=== PATIENT | female | born 1945 | race Caucasian/White ===

== ENCOUNTER → 2024-04-20 09:55 | Outpatient (REF) | payer MEDICARE, SELFPAY ==
[2024-04-20 10:53] LABS: % Basophils 0.8 % (0-2); % Eosinophils 9.3 % (0-6); % Immature Granulocytes 0.2 % (0-0.5); % Lymphocytes 26.5 % (20.5-51.1); % Monocytes 7.4 % (1.7-9.3); % Neutrophils 55.8 % (42.2-75.2); Absolute Basophils 0.1 10^3/uL (0-0.2); Absolute Eosinophils 0.8 10^3/uL (0-0.7); Absolute Lymphocytes 2.2 10^3/uL (1.2-3.4); Absolute Monocytes 0.6 10^3/uL (0.1-0.6); Absolute Neutrophils 4.7 10^3/uL (1.4-6.5); Hematocrit 35.6 % (37.0-47.0); Hemoglobin 11.6 g/dL (12.0-16.0); Mean Corp Hgb Conc. 32.6 g/dL (33.0-37.0); Mean Corpuscular Hgb 30.7 pg (27.0-31.0); Mean Corpuscular Volume 94.2 fL (81.0-99.0); Mean Platelet Volume 10.3 fL (7.4-10.4); Nucleated Red Blood Cells % 0 %; Platelet Count 256 10^3/uL (130-400); Red Blood Cell Count 3.78 10^6/uL (4.20-5.40); Red Cell Dist. Width 13.2 % (11.5-14.5); White Blood Cell Count 8.5 10^3/uL (4.8-10.8)
[2024-04-20 12:11] LABS: ALT (SGPT) 18 U/L (0-35); AST (SGOT) 27 U/L (14-36); Albumin 3.9 g/dl (3.5-5.0); Alkaline Phosphatase 128 U/L (38-126); Blood Urea Nitrogen 14 mg/dl (7-17); Calcium 9.3 mg/dl (8.4-10.2); Carbon Dioxide 27 mmol/L (22-30); Chloride 104 mmol/L (98-107); Glucose 117 mg/dl (70-99); HDL Cholesterol 53 mg/dl; LDL Cholesterol, Calculated 108 mg/dl; Potassium 4.3 mmol/L (3.5-5.1); Sodium 139 mmol/L (135-145); Total Bilirubin 0.6 mg/dl (0.2-1.3); Total Cholesterol 178 mg/dl (50-199); Total Protein 6.5 g/dl (6.3-8.2); Triglyceride 85 mg/dl (10-149); Very Low Density Lipoprotein 17 mg/dl (0-30); eGFR > 60.00
[2024-04-20 12:24] LABS: Vitamin D, 25-OH*** 29.9 ng/mL (30-80)
[2024-04-20 12:37] LABS: TSH Reflex To Free T4 2.21 uIU/ml (0.47-4.68)
[2024-04-20 13:13] LABS: Folate > 20.0 ng/ml (2.76-20); Vitamin B12 > 1000 pg/ml (239-931)
== END ==
LOC: OLABLV 09:55
PROVIDERS: ATTENDING PHYSICIAN Nurse Practitioner Adult Health
DX: Z00.00 Encounter for general adult medical examination without abnormal findings (principal); Z79.899 Other long term (current) drug therapy; E55.9 Vitamin D deficiency, unspecified; F03.B0 Unspecified dementia, moderate, without behavioral disturbance, psychotic disturbance, mood disturbance, and anxiety; E03.9 Hypothyroidism, unspecified; E78.00 Pure hypercholesterolemia, unspecified; I10 Essential (primary) hypertension
CPT/HCPCS: 36415; 80053; 80061; 82306; 82607; 82746; 84443; 85025

== ENCOUNTER → 2024-07-13 10:34 | Outpatient (REF) | payer MEDICARE, OTHER, SELFPAY ==
[2024-07-13 12:03] LABS: Blood Urea Nitrogen 16 mg/dl (7-17); Calcium 9.5 mg/dl (8.4-10.2); Carbon Dioxide 26 mmol/L (22-30); Chloride 103 mmol/L (98-107); Glucose 119 mg/dl (70-99); Potassium 4.4 mmol/L (3.5-5.1); Sodium 135 mmol/L (135-145); eGFR > 60.00
== END ==
LOC: OLABLV 10:34
PROVIDERS: ATTENDING PHYSICIAN Registered Nurse
DX: F33.1 Major depressive disorder, recurrent, moderate (principal)
CPT/HCPCS: 36415; 80048

== ENCOUNTER → 2024-07-15 11:19 | Outpatient (REF) | payer MEDICARE, OTHER, SELFPAY ==
[2024-07-15 12:09] LABS: Blood Urea Nitrogen 15 mg/dl (7-17); Calcium 9.4 mg/dl (8.4-10.2); Carbon Dioxide 30 mmol/L (22-30); Chloride 102 mmol/L (98-107); Glucose 108 mg/dl (70-99); Potassium 4.4 mmol/L (3.5-5.1); Sodium 141 mmol/L (135-145); eGFR > 60.00
== END ==
LOC: OLABLV 11:19
PROVIDERS: ATTENDING PHYSICIAN Nurse Practitioner Adult Health
DX: I10 Essential (primary) hypertension (principal); E78.49 Other hyperlipidemia
CPT/HCPCS: 36415; 80048

== ENCOUNTER → 2024-09-28 13:11 | Outpatient (REF) | payer MEDICARE, OTHER, SELFPAY ==
[2024-09-28 14:50] LABS: % Basophils 0.8 % (0-2); % Eosinophils 8.2 % (0-6); % Immature Granulocytes 0.1 % (0-0.5); % Lymphocytes 27.8 % (20.5-51.1); % Monocytes 7.9 % (1.7-9.3); % Neutrophils 55.2 % (42.2-75.2); Absolute Basophils 0.1 10^3/uL (0-0.2); Absolute Eosinophils 0.6 10^3/uL (0-0.7); Absolute Monocytes 0.6 10^3/uL (0.1-0.6); Hematocrit 34.6 % (37.0-47.0); Hemoglobin 11.6 g/dL (12.0-16.0); Mean Corp Hgb Conc. 33.5 g/dL (33.0-37.0); Mean Corpuscular Hgb 30.9 pg (27.0-31.0); Mean Platelet Volume 10.1 fL (7.4-10.4); Nucleated Red Blood Cells % 0 %; Platelet Count 286 10^3/uL (130-400); Red Blood Cell Count 3.76 10^6/uL (4.20-5.40); Red Cell Dist. Width 13.3 % (11.5-14.5); White Blood Cell Count 7.3 10^3/uL (4.8-10.8)
[2024-09-28 15:24] LABS: ALT (SGPT) 18 U/L (0-35); AST (SGOT) 26 U/L (14-36); Alkaline Phosphatase 135 U/L (38-126); Blood Urea Nitrogen 12 mg/dl (7-17); Calcium 9.3 mg/dl (8.4-10.2); Carbon Dioxide 28 mmol/L (22-30); Chloride 102 mmol/L (98-107); Glucose 108 mg/dl (70-99); HDL Cholesterol 48 mg/dl; LDL Cholesterol, Calculated 102 mg/dl; Potassium 4.4 mmol/L (3.5-5.1); Sodium 140 mmol/L (135-145); Total Bilirubin 0.4 mg/dl (0.2-1.3); Total Cholesterol 170 mg/dl (50-199); Total Protein 6.3 g/dl (6.3-8.2); Triglyceride 100 mg/dl (10-149); Very Low Density Lipoprotein 20 mg/dl (0-30); eGFR > 60.00
[2024-09-28 15:52] LABS: TSH Reflex To Free T4 3.09 uIU/ml (0.47-4.68)
[2024-09-28 16:11] LABS: Vitamin B12 1000 pg/ml (239-931)
== END ==
LOC: OLABLV 13:11
PROVIDERS: ATTENDING PHYSICIAN Registered Nurse
DX: F03.90 Unspecified dementia, unspecified severity, without behavioral disturbance, psychotic disturbance, mood disturbance, and anxiety (principal); I10 Essential (primary) hypertension; E03.9 Hypothyroidism, unspecified; E78.00 Pure hypercholesterolemia, unspecified; E55.9 Vitamin D deficiency, unspecified; D64.9 Anemia, unspecified; E53.8 Deficiency of other specified B group vitamins
CPT/HCPCS: 36415; 80053; 80061; 82607; 84443; 85025

== ENCOUNTER 2025-01-02 07:12 | Inpatient (IN) | payer MEDICARE, SELFPAY ==
[2024-12-31 14:37] VITALS: BP 174/105
--- NOTE | 2024-12-31 14:40 | ED.GENMED ---
History of Present Illness
<Michelle Oneil, QUARRYMAN - Last Filed: 01/01/25 10:12>
General
Chief Complaint: Change in Mental Status
Source: ambulance crew and custodial records
Exam Limitations: dementia
Time Seen by Provider: 12/31/24 14:34
Nursing documentation reviewed up to this point in time: agreed with
History of Present Illness
History of Present Illness:
79 yo female sent in from [facility] for change in mental state. Reportedly , she is pleasantly demented but today she became suddenly aggressive, delirious, acute change for her.
Presents screaming out, flailing around, unable to communicate, will state her first name then states she's in ' [facility].'
Past History
<Michelle Oneil, QUARRYMAN - Last Filed: 01/01/25 10:12>
Past History
ED Past Medical History: GERD, HTN, Hypercholesterolemia, Hypothyroidism and Psychiatric (Dementia)
ED Past Surgical History: Cardiac (pacemaker)
Social History
Tobacco: Non-smoker
Alcohol: None
Living: custodial
Review of Systems
<Michelle Oneil, QUARRYMAN - Last Filed: 01/01/25 10:12>
Review of Systems
Allergies reviewed?: Yes
Unable to obtain full review of systems at this time due to: dementia
Other source history: custodial and ambulance crew
All Other Systems: ROS reviewed and negative except as documented in HPI and ROS
Constitutional: Denies fever
Respiratory: Denies trouble breathing
ABD/GI: Denies vomiting or diarrhea
Musculoskeletal: Denies edema
Skin: Reports no symptoms
Neurological: Reports other (change in mental state)
Phy Exam
<Michelle Oneil, QUARRYMAN - Last Filed: 01/01/25 10:12>
Physical Exam
Physical Exam:
GENERAL: No acute distress. A&Ox3.
CONSTITUTIONAL: Afebrile.
EYES: clear, conjunctivae normal
ENMT: dry mucus membranes
RESPIRATORY: Regular respirations, nonlabored, lungs clear.
CARDIOVASCULAR: Regular rate and rhythm, no murmurs, no rubs.
GI: Soft, nontender, normal BS
MUSCULOSKELETAL: Moves with ease. Well perfused. No edema
SKIN: Warm, dry, pink
PSYCH: Alternating agitated to quiet mood and affect. Well kept, cooperative at times, combative at times.
NEUROLOGIC: Awake, alert and oriented to first name only. Speech clear. No focal neurological deficits
Course
<Michelle Oneil QUARRYMAN - Last Filed: 01/01/25 10:12>
Orders/Labs/Results
Orders:
Orders
12/31/24 Breakfast
Regular
12/31/24 14:35
Straight cath- Treatment ONCE
12/31/24 14:44
CT Head W/o Iv Contrast Urgent
Comment:
Reason For Exam: change in mental state
12/31/24 14:48
Complete Blood Count/With Diff Urgent
Comprehensive Metabolic Panel Urgent
TSH Reflex To Free T4 Urgent
12/31/24 15:00
CR Chest - 2 Views Urgent
Comment:
Reason For Exam: change in mental state
12/31/24 15:06
COVID-19 Antigen Urgent
Source: Nasal Swab
Urinalysis Reflex To Culture Urgent
Date Specimen was Collected: 12/31/24
Time Specimen was Collected: 14:45
Urine Drug Abuse Screen Urgent
Date Specimen was Collected: 12/31/24
Time Specimen was Collected: 14:45
Influenza A+B Rapid Molecular Urgent
MARKO Source: Nasal Swab
Specimen Description:
12/31/24 17:47
Lorazepam [Ativan] 0.5 mg IV NOW STA
12/31/24 17:49
Lorazepam [Ativan] 2 mg .ROUTE .STK-MED ONE
12/31/24 18:10
Telemedicine Psychiatry Conslt Urgent
Service Line: Psychiatric
Nursing Station
Ordering Physician: Michelle Oneil
Referring Physician
Cart Name: Dayron
Clinical Comments: aggressive, combative behavior
Psych Consult Reason: Change in Mental Status
Psychiatry Consult Location: ED
Patient Needs to be Seen Emergently: Yes
Patient Admitted for NonPsychiatric Reasons: No
Patient in Restraints: Yes
Patient Requires a Personal Fitness Trainer: Yes
Patient's Legal Status is Involuntary: Yes
Patient Requires a Guardian: No
12/31/24 18:21
Crisis Consult Urgent
Reason for Consult: agitation and violence
12/31/24 18:30
Restraints - Violent As Directed
Restraint Type-: Soft Limb-L&R Wrist/4rail
Apply From (date): 12/31/24
Apply from (time): 18:30
Remove (date): 12/31/24
Remove (time): 22:32
12/31/24 18:32
1:1 Observation - Suicide/ Violent Behavior As Directed
12/31/24 19:30
Add On- LAB Urgent
Tests Added?: urine drug screen
12/31/24 20:14
Admit/Transfer Patient As Directed
Co-Sign Provider:
Level of Care: Observation services
Assign to:: Medical/Surgical
Physician / Group: Jack
Diagnosis: Acute Delirium on Chronic Dementia
PRN Pain Medication Management As Directed
May give lesser potent ordered pain med per pt: Yes
preference::
Protocol:: Medication orders for pain may be administered in a
manner that supports deferring to patient preference
when the pt is:
- Requesting an ordered lesser potent pain medication.
Least to most potent pain medications are defined
as: acetaminophen < NSAID < tramadol < opioids
(morphine, oxycodone, hydromorphone).
- Requesting a lesser dose of the same medication IF
ORDERED.
- Requesting a less intrusive route of administration
if both routes are prescribed by the provider (PO <
IV).
12/31/24 20:15
Code Status As Directed
Resuscitation Status: Full Code
12/31/24 20:24
EKG [Electrocardiogram (*1)] Urgent
Reason for Study: QTc Monitoring
12/31/24 22:18
Haloperidol Lactate [Haldol] 1 mg IV Q4HPRN PRN
12/31/24 22:50
Acetaminophen [Tylenol] 650 mg PO Q4HPRN PRN
12/31/24 22:50
Activity As Directed
Activity Level: Ambulate
With Assistance
I/O [Intake/ Output] As Directed
Frequency: Per unit guidelines
Neurological Checks As Directed
Frequency: q4h
Pneumatic Compression Sleeves As Directed
Type: Knee high
Vital Signs As Directed
Frequency: Per unit guidelines
Oxygen Therapy [O2 Therapy] [RESP] Routine
Titrate/Wean O2 to maintain O2 sat greater than (%): 94
Ot Eval And Treat Routine
PT Consult [Pt Eval And Treat] Routine
Activity Level: Ambulate
With Assistance
Speech Therapy Eval & Treat Routine
DX Deep Vein Thrombosis Video Routine
12/31/24 23:00
Citalopram [Celexa] 20 mg PO HS
01/01/25 06:00
MRI Brain [MR Brain Without Contrast] IN AM
Comment:
Reason For Exam: Altered Mental Status
Recent pill cam endoscopy?: No
Levothyroxine [Synthroid] 50 mcg PO DAILY@0600
01/01/25 06:32
Basic Metabolic Panel IN AM
Complete Blood Count/No Diff IN AM
01/01/25 08:00
Acetaminophen [Tylenol] 650 mg PO DAILY
Aspirin Chewable [Low Strength Aspirin] 81 mg PO DAILY
01/01/25 18:00
Pravastatin Sodium [Pravachol] 40 mg PO QPM
Abnormal Lab Results
12/31/24
14:48
Eosinophils % 8.7 H %
(0-6)
Creatinine 0.5 L mg/dL
(0.6-1.0)
Glucose 130 H mg/dl
(70-99)
Alkaline Phosphatase 172 H U/L
(38-126)
12/31/24 14:48
12/31/24 14:48
Vital Signs
Initial and Last Documented VS:
Initial Vital Signs
Pulse Resp BP Pulse Ox
79 16 174/105 98
12/31/24 14:37 12/31/24 14:37 12/31/24 14:37 12/31/24 14:37
Last Documented Vital Signs
Temp Pulse Resp BP Pulse Ox
97.8 F 60 16 131/61 96
01/01/25 06:40 01/01/25 06:40 01/01/25 06:40 01/01/25 06:40 01/01/25 06:40
Chazlt;Perry Ames, DO - Last Filed: 12/31/24 17:24>
Orders/Labs/Results
Orders:
Orders
12/31/24 Breakfast
Regular
12/31/24 14:35
Straight cath- Treatment ONCE
12/31/24 14:44
CT Head W/o Iv Contrast Urgent
Comment:
Reason For Exam: change in mental state
12/31/24 14:48
Complete Blood Count/With Diff Urgent
Comprehensive Metabolic Panel Urgent
TSH Reflex To Free T4 Urgent
12/31/24 15:00
CR Chest - 2 Views Urgent
Comment:
Reason For Exam: change in mental state
12/31/24 15:06
COVID-19 Antigen Urgent
Source: Nasal Swab
Urinalysis Reflex To Culture Urgent
Date Specimen was Collected: 12/31/24
Time Specimen was Collected: 14:45
Urine Drug Abuse Screen Urgent
Date Specimen was Collected: 12/31/24
Time Specimen was Collected: 14:45
Influenza A+B Rapid Molecular Urgent
MARKO Source: Nasal Swab
Specimen Description:
12/31/24 17:47
Lorazepam [Ativan] 0.5 mg IV NOW STA
12/31/24 17:49
Lorazepam [Ativan] 2 mg .ROUTE .STK-MED ONE
12/31/24 18:10
Telemedicine Psychiatry Conslt Urgent
Service Line: Psychiatric
Nursing Station
Ordering Physician: Michelle Oneil
Referring Physician
Cart Name: Dayron
Clinical Comments: aggressive, combative behavior
Psych Consult Reason: Change in Mental Status
Psychiatry Consult Location: ED
Patient Needs to be Seen Emergently: Yes
Patient Admitted for NonPsychiatric Reasons: No
Patient in Restraints: Yes
Patient Requires a Personal Fitness Trainer: Yes
Patient's Legal Status is Involuntary: Yes
Patient Requires a Guardian: No
12/31/24 18:21
Crisis Consult Urgent
Reason for Consult: agitation and violence
12/31/24 18:30
Restraints - Violent As Directed
Restraint Type-: Soft Limb-L&R Wrist/4rail
Apply From (date): 12/31/24
Apply from (time): 18:30
Remove (date): 12/31/24
Remove (time): 22:32
12/31/24 18:32
1:1 Observation - Suicide/ Violent Behavior As Directed
12/31/24 19:30
Add On- LAB Urgent
Tests Added?: urine drug screen
12/31/24 20:14
Admit/Transfer Patient As Directed
Co-Sign Provider:
Level of Care: Observation services
Assign to:: Medical/Surgical
Physician / Group: Jack
Diagnosis: Acute Delirium on Chronic Dementia
PRN Pain Medication Management As Directed
May give lesser potent ordered pain med per pt: Yes
preference::
Protocol:: Medication orders for pain may be administered in a
manner that supports deferring to patient preference
when the pt is:
- Requesting an ordered lesser potent pain medication.
Least to most potent pain medications are defined
as: acetaminophen < NSAID < tramadol < opioids
(morphine, oxycodone, hydromorphone).
- Requesting a lesser dose of the same medication IF
ORDERED.
- Requesting a less intrusive route of administration
if both routes are prescribed by the provider (PO <
IV).
12/31/24 20:15
Code Status As Directed
Resuscitation Status: Full Code
12/31/24 20:24
EKG [Electrocardiogram (*1)] Urgent
Reason for Study: QTc Monitoring
12/31/24 22:18
Haloperidol Lactate [Haldol] 1 mg IV Q4HPRN PRN
12/31/24 22:50
Acetaminophen [Tylenol] 650 mg PO Q4HPRN PRN
12/31/24 22:50
Activity As Directed
Activity Level: Ambulate
With Assistance
I/O [Intake/ Output] As Directed
Frequency: Per unit guidelines
Neurological Checks As Directed
Frequency: q4h
Pneumatic Compression Sleeves As Directed
Type: Knee high
Vital Signs As Directed
Frequency: Per unit guidelines
Oxygen Therapy [O2 Therapy] [RESP] Routine
Titrate/Wean O2 to maintain O2 sat greater than (%): 94
Ot Eval And Treat Routine
PT Consult [Pt Eval And Treat] Routine
Activity Level: Ambulate
With Assistance
Speech Therapy Eval & Treat Routine
DX Deep Vein Thrombosis Video Routine
12/31/24 23:00
Citalopram [Celexa] 20 mg PO HS
01/01/25 06:00
MRI Brain [MR Brain Without Contrast] IN AM
Comment:
Reason For Exam: Altered Mental Status
Recent pill cam endoscopy?: No
Levothyroxine [Synthroid] 50 mcg PO DAILY@0600
01/01/25 06:32
Basic Metabolic Panel IN AM
Complete Blood Count/No Diff IN AM
01/01/25 08:00
Acetaminophen [Tylenol] 650 mg PO DAILY
Aspirin Chewable [Low Strength Aspirin] 81 mg PO DAILY
01/01/25 18:00
Pravastatin Sodium [Pravachol] 40 mg PO QPM
Abnormal Lab Results
12/31/24
14:48
Eosinophils % 8.7 H %
(0-6)
Creatinine 0.5 L mg/dL
(0.6-1.0)
Glucose 130 H mg/dl
(70-99)
Alkaline Phosphatase 172 H U/L
(38-126)
12/31/24 14:48
12/31/24 14:48
Vital Signs
Initial and Last Documented VS:
Initial Vital Signs
Pulse Resp BP Pulse Ox
79 16 174/105 98
12/31/24 14:37 12/31/24 14:37 12/31/24 14:37 12/31/24 14:37
Last Documented Vital Signs
Temp Pulse Resp BP Pulse Ox
97.8 F 60 16 131/61 96
01/01/25 06:40 01/01/25 06:40 01/01/25 06:40 01/01/25 06:40 01/01/25 06:40
<Michelle Oneil QUARRYMAN - Last Filed: 01/01/25 10:12>
MDM/Problems Addressed
Differential Diagnosis Includes:
progressing dementia, metabolic encephalopathy, acute elicia/dilerium, CVA
MDM/Problems Addressed:
79 yo female w h/o GERD, HTN, HLD, Hypothyroid, sent in from [facility] for change in mental state. Reportedly , she is pleasantly demented but today she became suddenly aggressive, delirious, acute change for her.
Presents screaming out, flailing around, unable to communicate, will state her first name then states she's in ' [facility].'
Afebrile
No infectious symptoms
No new medications
No hypoxemia
No recent trauma/fall
After initial outburst, pt cooperative with blood draw, straight catheterization. Remains disoriented to her last name, place, year
3:30 p.m.
CBC: normal
CMP: Normal
Covid neg
Flu neg
TSH WNL
5:[address] NAD
CXR NAD
Pt has been calm, cooperative entire stay after initial event on arrival.
Stable for discharge
5:50 p.m.
Pt suddenly combative, confused attempting to climb out of bed, angry, Ativan 0.5 mg IV ordered.
6:10 p.m.
Pt has gotten out of bed and in bathroom naked, refusing to come out.
Placed back in bed, soft wrist restraints ordered for pt safety as she tries to pull out her IV. Pt is difficult to get to stay in bed even with 3 staff members present. One-one monitor person placed in room
Tele Psych order in. Pt may need [facility]
Namita YANEZ from [place] called and states pt is never agitated and this is totally out of ordinary for pt.
7:[address] Aguilar consulted. She recommends medical admission for Neuro eval and possibly MRI as pt is having expressive aphasia as well as episodes of delirium. She does not think this is a psychiatric issue. '
Requests no further Ativan as this can exacerbate delirium
Also recommends UDS which is pending
Attempt x 3 to call NH to see if expressive aphasia is new but no answer.
Medications reviewed and nothing to explain change in behavior
Hospitalist notified of admission.
<Michelle Oneil, QUARRYMAN - Last Filed: 01/01/25 10:12>
*Critical Care Note
Total Time (30-74mins, 75-104mins- exclusive of procedures): Not Applicable
ED Attending Note
<Michelle Oneil QUARRYMAN - Last Filed: 01/01/25 10:12>
-
Portions of this chart may have been created with voice recognition software.� Occasional wrong word or��sound alike� substitutions may have occurred due to the inherent limitations of voice recognition software.
<Perry Ames DO - Last Filed: 12/31/24 17:24>
ED Attending Note
Patient seen and examined by attending physician: Yes
I performed the substantive portion of visit, reviewed & personally made and approve the management plan that is documented in note by myself or MATT.: Yes
ED Attending Note:
History of presenting symptoms reviewed with QUARRYMAN, patient has been calm here, workup unremarkable
Discharge Plan
Departure
Patient Disposition: Admit
Date of Disposition: 12/31/24
Time of Disposition: 19:26
Admit to: Med/Surg
Presentation/result/management discussed w/ accepting MD/DO: Hospitalist
Condition: Fair
Covid-19: Negative COVID-19
Discharge Problem:
Episode of behavior change, Altered mental state
Interventions
Interventions:
*Risk Screen - Suicide Last Done: 12/31/24 14:37
*General Assessment Last Done: 12/31/24 16:59
*Neglect/Abuse Screening Last Done: 12/31/24 14:37
*ED COVID-19 Vaccine History Last Done: 12/31/24 15:04
ED- Neurological Assessment Last Done: 12/31/24 15:04
ED Swallowing Screen Last Done: 12/31/24 15:04
[2024-12-31 14:55] LABS: % Basophils 0.7 % (0-2); % Eosinophils 8.7 % (0-6); % Immature Granulocytes 0.3 % (0-0.5); % Lymphocytes 33.7 % (20.5-51.1); % Monocytes 7.2 % (1.7-9.3); % Neutrophils 49.4 % (42.2-75.2); Absolute Basophils 0.1 10^3/uL (0-0.2); Absolute Eosinophils 0.6 10^3/uL (0-0.7); Absolute Lymphocytes 2.4 10^3/uL (1.2-3.4); Absolute Monocytes 0.5 10^3/uL (0.1-0.6); Absolute Neutrophils 3.6 10^3/uL (1.4-6.5); Hematocrit 39.1 % (37.0-47.0); Hemoglobin 13.1 g/dL (12.0-16.0); Mean Corp Hgb Conc. 33.5 g/dL (33.0-37.0); Mean Corpuscular Volume 92.4 fL (81.0-99.0); Mean Platelet Volume 9.8 fL (7.4-10.4); Nucleated Red Blood Cells % 0 %; Platelet Count 251 10^3/uL (130-400); Red Blood Cell Count 4.23 10^6/uL (4.20-5.40); Red Cell Dist. Width 13.3 % (11.5-14.5); White Blood Cell Count 7.2 10^3/uL (4.8-10.8)
[2024-12-31 15:11] LABS: ALT (SGPT) 22 U/L (0-35); AST (SGOT) 36 U/L (14-36); Albumin 4.3 g/dl (3.5-5.0); Alkaline Phosphatase 172 U/L (38-126); Blood Urea Nitrogen 9 mg/dl (7-17); Calcium 9.8 mg/dl (8.4-10.2); Carbon Dioxide 28 mmol/L (22-30); Chloride 103 mmol/L (98-107); Glucose 130 mg/dl (70-99); Potassium 4.1 mmol/L (3.5-5.1); Sodium 138 mmol/L (135-145); Total Bilirubin 0.8 mg/dl (0.2-1.3); Total Protein 7.1 g/dl (6.3-8.2); eGFR > 60.00
[2024-12-31 15:36] LABS: COVID-19 Antigen Negative (Negative)
[2024-12-31 15:41] LABS: TSH Reflex To Free T4 2.14 uIU/ml (0.47-4.68)
[2024-12-31 15:43] LABS: Urine Albumin Negative (Neg - Trace); Urine Bilirubin Negative (Negative); Urine Character Clear (Clear); Urine Color Yellow; Urine Glucose Negative (Negative); Urine Ketone Negative (Negative); Urine Leukocyte Negative (Negative); Urine Nitrite Negative (Negative); Urine Occult Blood Negative (Negative); Urine Urobilinogen Negative (Neg - 1+)
[2024-12-31 16:55] VITALS: BP 144/85
[2024-12-31 17:00] VITALS: BP 156/91
[2024-12-31] MEDS: ATIVAN 0.5 MG IV (17:52)
[2024-12-31 20:18] LABS: Amphetamines Negative (Negative); Barbiturates Negative (Negative); Benzodiazepines Negative (Negative); Buprenorphine Negative (Negative); Cocaine Negative (Negative); Methamphetamines Negative (Negative)
[2024-12-31 20:19] LABS: Marijuana Negative (Negative); Methadone Negative (Negative); Opiates Negative (Negative); Phencyclidine Negative (Negative); Tricyclic Antidepressants Negative (Negative)
--- NOTE | 2024-12-31 20:37 | HPS.HSE ---
Family Physician
-
Family Physician: CUONG Jacobs
Chief Complaint
-
Agitation
History of Present Illness
Patient is a 79y F with PMH significant for senile dementia and hypothyroidism who presents to ED from local [place] for evaluation of behavioral change. Patient has baseline dementia but is typically pleasantly confused. Today she was aggressive
and combative and lashing out at staff physically. She was transported to the ED for evaluation. Patient received Ativan 0.5mg IV x 1 in the ED. She was evaluated by telepsych who appreciated some 'expressive aphasia' and advised that patient be
admitted to the hospital for medical evaluation.
At the time of my examination, patient is awake and interactive. She has wrist restraints in place due to continued aggressive behaviors. She answers simple questions seemingly appropriately - though not clear on accuracy of her answers.
She offers no complaints. She moves all extremities without apparent difficulty.
Objective evaluation in the ED has been unremarkable.
Medical History
Past Medical History
Past Medical History: Reports Other
Additional Past Medical History:
Senile Dementia
Hypothyroidism
GERD
Past Surgical History: Reports Other
Additional Past Surgical History:
Unknown
Social History
Unable to obtain full social history at this time due to: Dementia
Family History
Family History: Unable to Obtain
Allergies / Home Medications
Allergies reflects when Allergies were last updated in [facility].
Home Medications with original date entered in [facility]
Allergy/Medication List:
Allergies
Allergy/AdvReac Type Severity Reaction Status Date / Time
No Known Allergies Allergy Verified 12/18/21 12:56
Home Medications
Tinnitus 911 1 mg PO BID Supplement 12/18/21
acetaminophen 650 mg tablet,extended release (Tylenol Arthritis Pain) 650 mg PO DAILY Pain 12/18/21
citalopram 10 mg tablet 20 mg PO HS Mental Health/Anxiety 12/18/21
docusate sodium 100 mg capsule 100 mg PO DAILY Constipation 12/18/21
glucosamine-chondroitin 500 mg-400 mg tablet (Cosamin DS) 1 tab PO DAILY Supplement ##0 12/18/21
levothyroxine 50 mcg tablet 50 mcg PO DAILY Thyroid 12/18/21
melatonin 5 mg tablet 5 mg PO HS Sleep 12/18/21
meloxicam 7.5 mg tablet 15 mg PO HS Pain 12/18/21
pantoprazole 40 mg tablet,delayed release 40 mg PO BID Gastrointestinal issue 12/18/21
pravastatin 40 mg tablet 40 mg PO QPM High cholesterol 12/18/21
cyanocobalamin (vitamin B-12) 1,000 mcg tablet 1,000 mcg PO DAILY 12/31/24
Review of Systems
-
Unable to obtain full review of systems at this time due to: Dementia
Physical Exam
Vital Signs
Vital Signs
Temp Pulse Resp BP Pulse Ox
99.3 F 65 20 156/91 97
12/31/24 15:02 12/31/24 17:30 12/31/24 20:04 12/31/24 17:00 12/31/24 17:30
Physical Exam
General: Other (79y F awake and interactive. Not agitated / aggressive at present.)
HEENT: Moist mucous membranes and PERRLA
Respiratory: Clear; No Wheezes, Rales or Rhonchi
Cardiac: S1/S2 and Regular Rhythm; No Murmur
GI: Soft, Non Tender, Non Distended and Normal Bowel Sounds
Musculoskeletal: No Clubbing, No Cyanosis and No Edema
Neuro: Awake, Alert and Nonfocal/grossly intact; No Oriented
Laboratory Results
-
12/31/24 14:48
12/31/24 14:48
Laboratory Results
Total Bilirubin 0.8 mg/dl (0.2-1.3) 12/31/24 14:48
AST 36 U/L (14-36) 12/31/24 14:48
ALT 22 U/L (0-35) 12/31/24 14:48
Alkaline Phosphatase 172 U/L (38-126) H 12/31/24 14:48
Impression/Plan
-
A/P: Patient is a 79y F with PMH significant for dementia who presents to ED this evening for evaluation of new aggressive / combative behaviors.
Acute Delirium / Agitation
Chronic Dementia
- Observe overnight for further evaluation and treatment.
- No current evidence of other acute medical issue at this time.
- CT head unremarkable.
- Labs unremarkable.
- No evidence of pneumonia on CXR or infection on UA.
- Follow for clinical changes.
- Avoid sedating meds - Haldol for agitation per Psych recommendations.
- Check EKG now for QTc.
- Neurology and Psychiatry evaluations for additional recommendations.
- MRI in AM if able.
- Possible that this reflects progression of underlying dementia with new behavioral disturbance.
Hypothyroidism
- Stable. TSH normal. Continue current T4 replacement.
DVT Prophylaxis: SCDs
Code Status: Full
Case reviewed via phone with POA / court-appointed guardian Kassandra Tiwari ([phone]).
--- NOTE | 2024-12-31 23:00 | EDRN ---
Report received, patient is sleeping with 1:1 will continue to monitor
[2024-12-31] MEDS: CELEXA 20 MG PO (23:52)
--- NOTE | 2025-01-01 00:02 | EDRN ---
In to give patient meds, patient is friendly with me, takes meds without an issue, covered up with blankets and goes back to resting, continue 1:1
--- NOTE | 2025-01-01 02:30 | EDRN ---
Patient is sleeping at this time, 1:1 maintained
--- NOTE | 2025-01-01 04:00 | EDRN ---
Patient sleeping at this time 1:[address], will continue to monitor
[2025-01-01] MEDS: SYNTHROID PO ×2 (06:38→06:52)
[2025-01-01 06:39] VITALS: BP 131/61
[2025-01-01 06:40] VITALS: BP 131/61
--- NOTE | 2025-01-01 06:59 | EDRN ---
Patient rolled and changed, pulled up in bed and warm blankets provided
[2025-01-01 07:03] LABS: Hematocrit 36.6 % (37.0-47.0); Hemoglobin 12.6 g/dL (12.0-16.0); Mean Corp Hgb Conc. 34.4 g/dL (33.0-37.0); Mean Corpuscular Hgb 31.7 pg (27.0-31.0); Mean Platelet Volume 9.8 fL (7.4-10.4); Platelet Count 236 10^3/uL (130-400); Red Blood Cell Count 3.98 10^6/uL (4.20-5.40); Red Cell Dist. Width 13.3 % (11.5-14.5); White Blood Cell Count 8.1 10^3/uL (4.8-10.8)
[2025-01-01 07:16] LABS: Blood Urea Nitrogen 13 mg/dl (7-17); Calcium 9.5 mg/dl (8.4-10.2); Carbon Dioxide 33 mmol/L (22-30); Chloride 103 mmol/L (98-107); Glucose 106 mg/dl (70-99); Potassium 4.2 mmol/L (3.5-5.1); Sodium 138 mmol/L (135-145); eGFR > 60.00
--- NOTE | 2025-01-01 08:28 | CON.NEURO ---
Neuro Assessment/Plan
Assessment
Prior history of dementia with acute onset agitation
Most likely secondary to either Alzheimer's type dementia or progressive degenerative cognitive disorder of a similar nature
Plan
Supportive care
Continue citalopram
No evidence of benefit from initiation of memory stabilizing medication
Consultation
Order
Date of Consultation: 01/01/25
Requesting Provider: Hospitalist
Reason for Consult: Dementia
Subjective/Objective
Subjective Data
Date of Service: January 01, 2025
Objective Data
Vital Signs
Temp Pulse Resp BP Pulse Ox
36.6 C 60 16 131/61 96
01/01/25 06:40 01/01/25 06:40 01/01/25 06:40 01/01/25 06:40 01/01/25 06:40
Lab Results
01/01/25 06:32
01/01/25 06:32
Sodium 138 mmol/L (135-145) 01/01/25 06:32
Potassium 4.2 mmol/L (3.5-5.1) 01/01/25 06:32
BUN 13 mg/dl (7-17) 01/01/25 06:32
Glucose 106 mg/dl (70-99) H 01/01/25 06:32
Calcium 9.5 mg/dl (8.4-10.2) 01/01/25 06:32
Ur Buprenorphine Negative (Negative) 12/31/24 15:06
Patient Allergies
No Known Allergies Allergy (Verified 12/18/21 12:56)
Data Reviewed
-
CT Head: Report Reviewed
Labs: Report Reviewed
Reviewed with: Physician
Old Records: Summarized
Medications
-
Active Medications
Generic Name Dose Route Start Last Admin
Trade Name Freq PRN Reason Stop Dose Admin
Acetaminophen 650 mg 01/01/25 08:00
Acetaminophen 325 Mg Tablet PO 01/29/25 07:59
DAILY ZHANG
Acetaminophen 650 mg 12/31/24 22:50
Acetaminophen 325 Mg Tablet PO 01/28/25 22:49
Q4HPRN PRN
Mild Pain / Temp > 101
Aspirin 81 mg 01/01/25 08:00
Aspirin 81 Mg Chewable Tablet PO 01/29/25 07:59
DAILY ZHANG
Citalopram Hydrobromide 20 mg 12/31/24 23:00 12/31/24 23:52
Citalopram 20 Mg Tablet PO 01/28/25 22:59 20 mg
HS ZHANG Administration
Haloperidol Lactate 1 mg 12/31/24 22:18
Haloperidol 5 Mg/Ml 1 Ml Vial IV 01/28/25 22:17
Q4HPRN PRN
Agitation
Levothyroxine Sodium 50 mcg 01/01/25 06:00 01/01/25 06:52
Levothyroxine 50 Mcg Tablet PO 01/29/25 05:59 Not Given
DAILY@0600 ZHANG
Pravastatin Sodium 40 mg 01/01/25 18:00
Pravastatin 40 Mg Tablet PO 01/29/25 17:59
QPM ZHANG
Sodium Chloride 0 flush 12/31/24 23:00
Sodium Chloride 0.9% (Flush) Syringe IV 01/28/25 22:59
PER PROTOCOL ZHANG
Home Medications
�Medication �Instructions �Recorded
Tinnitus 911 1 mg PO BID Supplement 12/18/21
acetaminophen 650 mg 650 mg PO DAILY Pain 12/18/21
tablet,extended release (Tylenol
Arthritis Pain)
citalopram 10 mg tablet 20 mg PO HS Mental Health/Anxiety 12/18/21
docusate sodium 100 mg capsule 100 mg PO DAILY Constipation 12/18/21
glucosamine-chondroitin 500 mg-400 1 tab PO DAILY Supplement ##0 12/18/21
mg tablet (Cosamin DS)
levothyroxine 50 mcg tablet 50 mcg PO DAILY Thyroid 12/18/21
melatonin 5 mg tablet 5 mg PO HS Sleep 12/18/21
meloxicam 7.5 mg tablet 15 mg PO HS Pain 12/18/21
pantoprazole 40 mg tablet,delayed 40 mg PO BID Gastrointestinal issue 12/18/21
release
pravastatin 40 mg tablet 40 mg PO QPM High cholesterol 12/18/21
cyanocobalamin (vitamin B-12) 1,000 mcg PO DAILY 12/31/24
1,000 mcg tablet
Past History
Past History
ED Past Medical History: Arrthythmia (Bradycardia tachyarrhythmia), Cancer ([facility]), GERD, HTN, Hypercholesterolemia, Hypothyroidism, Psychiatric (Dementia) and Other (dementia, vitamin B12 deficiency, vitamin D deficiency)
ED Past Surgical History: Cardiac (pacemaker)
Social History
Tobacco: Non-smoker
Alcohol: None
Living: correction
Family History
Family History: Other (Reviewed and noncontributory)
[2025-01-01] MEDS: TYLENOL 650 MG PO (09:29)
[2025-01-01] MEDS: LOW STRENGTH ASPIRIN 81 MG PO (09:29)
--- NOTE | 2025-01-01 11:14 | W.PN.HOSP.TC ---
Today's Communication/Plan
-
Continue with medical treatment for agitation management
[facility] disturbances
Assessment / Plan
Assessment / Plan
A/P: Patient is a 79y F with PMH significant for dementia who presents to ED this evening for evaluation of new aggressive / combative behaviors.
Acute change in mental status with agitation
Chronic Dementia
- Remains confused and delusional
- No current evidence of other acute medical issue at this time. No obvious metabolic disturbances nor any suggestions of active infection
- CT head unremarkable.
- Labs unremarkable.
- No evidence of pneumonia on CXR or infection on UA.
- Avoid sedating meds - Haldol for agitation per Psych recommendations.
- Neurology and Psychiatry evaluations for additional recommendations.
- MRI in AM if able.
- Likely this reflects progression of underlying dementia with new behavioral disturbance.
Hypothyroidism
- Stable. TSH normal. Continue current T4 replacement.
DVT Prophylaxis: SCDs
Code Status: Full
POA / court-appointed guardian Kassandra Tiwari ([phone]).
Anticipated Discharge: Within 24 hours
Subjective/Interval History
-
Date of Service: January 01, 2025
Patient is now 1:1.
1:1 person says she is all confused and not allowing care .
She shourded herself in large blanket.
With persuasion i could get her to remove the blanket and talk face to face with me.
She is all confused -does not know where she is.
' People of the town is trying to get as people living in the facility' She couldnt tell me which facility.
' People around me accuse me of not taking care of myself'
She starts to talk about her parents all of a sudden.
When i asked if she has any kids ' i dont know if have any'
Nontoxic looking
No distress at rest
Objective Data
-
Labs:
Laboratory Results
01/01/25
06:32
WBC 8.1
Hgb 12.6
Hct 36.6 L
Plt Count 236
Sodium 138
Potassium 4.2
Chloride 103
Carbon Dioxide 33 H
BUN 13
Creatinine 0.6
Glucose 106 H
Calcium 9.5
Vital Signs:
Vital Signs
Temp Pulse Resp BP Pulse Ox
97.8 F 60 16 131/61 96
01/01/25 06:40 01/01/25 06:40 01/01/25 06:40 01/01/25 06:40 01/01/25 06:40
Review of Systems
-
Unable to obtain full review of systems at this time due to: Other (Due to cognitive impairment)
Physical Exam
-
General: Comfortable and Other (Didnt allow examination )
HEENT: Other (nontoxic looking)
Respiratory: Non Labored Respirations; Negative Accessory Resp Muscle Use
Neuro: Awake, Alert and Oriented (self only)
Psych: Calm and Confused
Data Reviewed
-
Labs: Labs Reviewed by me
--- NOTE | 2025-01-01 13:10 | W.PN.UPDATE ---
Update Note
Progress Note Update
Pt seen, reviewed Tele-psych eval. Pt is a 79 yo female brought from [facility], due to change in mental status/behavior, reportedly usually pleasantly demented at baseline, but became aggressive. Pt was given Ativan 0.5 mg IV in ED.
Pt noted to be awake and interactive in ED, answering simple questions, though not able to give accurate information. Head CT showed no acute abnormality. On approach, pt hiding behind blanket, not making eye contact, refusing to be interviewed,
stated she doesn't want anyone talking to her. No physical agitation, affect irritable.
PMH: Hypothyroidism, dementia
Psych hx: none noted other than dementia. Rx Celexa 10 mg QD
MSE: awake, holding blanket up, not making eye contact, refusing to be interviewed. No overt hallucinations/delusions. Unable to do full exam. Insight appears poor
Imp: Dementia with behavior disturbance; change of mental status due to progression of dementia vs possible delirium
Rec: agree with Haldol IV prn for agitation/aggression. Will follow
[2025-01-01 14:17] VITALS: BP 138/79
[2025-01-01] MEDS: HALDOL 1 MG IV (16:11)
--- NOTE | 2025-01-01 16:13 | PTCARENOTE ---
admitted from ED for acute change in MS. patient is agitated and combative on 1:1. unable to provide any history, not following simple commands. son on the contact list. this RN called son Jaspreet, and was informed that patient has a state assigned
guardian. some admission questions were answered by family.
patient became very restless, walked out of the room despite multiple attempts to redirect, unable to return back to her room. pushes this RN away and stating to get out of her. mickie puente called. patient was given IM Haldol. placed back in bed.
unable to assess sacral/buttocks for any skin issues, no visible open areas noted upon admission.
--- NOTE | 2025-01-01 17:50 | PTCARENOTE ---
received a call from Kassandra Tiwari patient appointed guardian, asking for updates. patient unable to hold a conversation at this time. restless and disoriented, 1:1 present at bedside
[2025-01-01] MEDS: CELEXA PO (22:43)
[2025-01-01 23:29] VITALS: BP 112/72
[2025-01-02] MEDS: SYNTHROID PO (05:19)
[2025-01-02] MEDS: TYLENOL PO (07:45)
[2025-01-02] MEDS: LOW STRENGTH ASPIRIN PO (07:45)
[2025-01-02 08:41] VITALS: BP 141/75
--- NOTE | 2025-01-02 08:53 | W.PN.HOSP.TC ---
Addendum entered and electronically signed by Rosita Leary MD 01/02/25 20:37:
I saw and evaluated the patient independently. I reviewed the resident�s note and agree with findings and plan as documented by Dr. Hernandez.
GENERAL: well developed, well nourished, female in no apparent distress
HEENT: NC/AT--no O2 requirements
HEART: regular rate and rhythm, +S1, +S2
LUNGS : clear to auscultation bilaterally
ABDOM: soft, nontender, nondistended, + bowel sounds
EXT: no cyanosis, clubbing, or edema
NEUROLOGIC: apparent dementia
Acute change in mental status with agitation--w/u neg for medical causes--likely progressive dementia with new behavioral changes-confused--prn haldol
Hypothyroidism--TSH normal. Continue current T4 replacement.
DVT Proph-- SCDs
Code Status--Full
POA / court-appointed guardian Kassandra Tiwari ([phone])--Dr. Hernandez updated 01/02/25
Original Note:
Today's Communication/Plan
-
Patient appears to be at her current baseline and is reached maximal benefit from this hospital admission. Plan is to return to [facility] vs SNF. Pending assessment. Will move forward with discharge planning following assessments.
Assessment / Plan
Assessment / Plan
HPI: Patient is a 79-year-old female who presented to [facility] from [facility] due to change in mental state. Her normal baseline at [facility] is 'pleasantly demented' but unfortunately the day of her presentation she suddenly
became aggressive, delirious, which was an acute change for her. The patient presented screaming out, flailing around, and was unable to communicate. She then would state her name and would remark that she was in '[facility] The
patient had no infectious symptoms, no new medication changes, no hypoxemia, and no evidence of recent trauma or fall. The patient was subsequently admitted to [facility] for altered mental status.
-Acute change in mental status with agitation: Monitoring
Patient suffers from chronic Dementia
Remains confused
No current evidence of other acute medical issue at this time. No obvious metabolic disturbances nor any suggestions of active infection
CT head unremarkable.
Labs unremarkable.
No evidence of pneumonia on CXR or infection on UA.
Psychiatry recommended avoiding sedating medications. Haldol for agitation.
Still awaiting MRI
Unfortunately, this reflects a progression of underlying dementia with new behavioral disturbance
- Hypothyroidism: Stable
TSH normal. Continue current T4 replacement.
DVT Prophylaxis: SCDs
Code Status: Full
POA / court-appointed guardian Kassandra Tiwari ([phone]).
Anticipated Discharge: 24 - 48 hours
Subjective/Interval History
-
Met with patient at the bedside. She is seen resting in the bed. She has no complaints but does not feel like eating. She did not eat her breakfast or her lunch.
Objective Data
-
Labs:
Labs
01/02/25 08:33
01/02/25 08:33
Vital Signs:
Vital Signs
Temp Pulse Resp BP Pulse Ox
98.5 F 69 16 141/75 96
01/02/25 08:41 01/02/25 08:41 01/02/25 08:41 01/02/25 08:41 01/02/25 08:41
I&O
01/01/25 01/02/25 01/03/25
06:59 06:59 06:59
Intake Total 360 / 360
Balance 360 / 360
Review of Systems
-
History Source: Patient
Constitutional: Reports No Symptoms
EENT: Reports No Symptoms Reported
Respiratory: Reports No Symptoms
Cardiac: Reports No Symptoms
Abdomen/GI: Reports No Symptoms
Breast: Reports No Symptoms
Genitourinary: Reports No Symptoms
Musculoskeletal: Reports No Symptoms
Skin: Reports No Symptoms
Neuro: Reports No Symptoms
Endocrine: Reports No Symptoms
Hematologic / Lymphatic: Reports No Symptoms
Physical Exam
-
General: Well Developed, Well Nourished and No Apparent Distress
HEENT: Normocephalic, Atraumatic and Moist Mucous Membranes
Respiratory: Clear to Auscultation
Cardiac: Regular Rhythm and S1/S2
Breast: Deferred by me
GI: Soft, Nontender, Nondistended and Normal Bowel Sounds
Musculoskeletal: No Clubbing, No Cyanosis and No Edema
Skin: Warm, Dry and Rash
Neuro: Awake and Alert
Psych: Calm
[2025-01-02 08:54] LABS: Hematocrit 37.2 % (37.0-47.0); Hemoglobin 12.5 g/dL (12.0-16.0); Mean Corp Hgb Conc. 33.6 g/dL (33.0-37.0); Mean Corpuscular Hgb 31.3 pg (27.0-31.0); Mean Platelet Volume 9.8 fL (7.4-10.4); Platelet Count 237 10^3/uL (130-400); Red Cell Dist. Width 13.3 % (11.5-14.5); White Blood Cell Count 9.9 10^3/uL (4.8-10.8)
[2025-01-02 09:19] LABS: ALT (SGPT) 24 U/L (0-35); AST (SGOT) 37 U/L (14-36); Albumin 4.2 g/dl (3.5-5.0); Alkaline Phosphatase 149 U/L (38-126); Blood Urea Nitrogen 16 mg/dl (7-17); Calcium 9.3 mg/dl (8.4-10.2); Carbon Dioxide 29 mmol/L (22-30); Chloride 102 mmol/L (98-107); Glucose 112 mg/dl (70-99); Potassium 3.9 mmol/L (3.5-5.1); Sodium 138 mmol/L (135-145); Total Protein 6.5 g/dl (6.3-8.2); eGFR > 60.00
--- NOTE | 2025-01-02 09:41 | PTOTSP ---
Patient appears to be at her functional baseline. Independent with bed mobility and transfers, supervision and nearing independence with ambulation. No skilled PT needs, will sign off.
--- NOTE | 2025-01-02 09:41 | PTOTSP ---
pt currently requires supervision to minimal assistance to complete simple ADLs, functional transfers, ambulation. pt appears to be close to functional baseline, no acute OT needs identified at this time. will sign off.
[2025-01-02] MEDS: LOW STRENGTH ASPIRIN 81 MG PO (11:09)
[2025-01-02] MEDS: TYLENOL 650 MG PO (11:10)
--- NOTE | 2025-01-02 11:36 | PTOTSP ---
ST Acute Care Evaluation
Limited exam. Pt refused all solids offered to her. Pt was observed to demonstrated oral, pharyngeal, and esophageal phases that were WFL for consumption of thin liquids via straw and whole PO meds with thin liquids. Further assessment needed.
Recommendations:
- Continue with regular solids, thin liquids, meds as tolerated with close supervision to ensure tolerance.
- General aspiration and reflux precautions.
- MANAGER BIOSTATISTICS to f/u re: further assessment of consumption of solid consistencies to determine safest and least restrictive diet consistencies and to determine if pt would benefit from an instrumental swallow study.
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
--- NOTE | 2025-01-02 16:37 | CM ---
Patient seen at bedside with physician. CM called to guardian Kassandra Karie at [phone] and update provided by physician. Guardian emailed paperwork to CM and patient son is in touch with guardian but is estranged. Patient now INP and is now
having aggressive behaviors. Patient is from [facility] and CM called to [facility] and left VM as well as to Liaison with [facility] and tt sent to [facility] asking about level of care needed. Patient is at baseline per PT/OT assessment. CM will continue to
follow for discharge planning needs.
Plan; return to [facility] vs SNF; pending assessment.
--- NOTE | 2025-01-02 17:06 | W.PN.UPDATE ---
Update Note
Progress Note Update
patient seen chart reviewed. patient has had two episodes of agitation the last one late this afternoon. nursing tells me they used the art of distraction to calm her down and when i saw her she was clearly very cognitively impaired but sitting at
the edge of her bed folding and refolding a blanket. she has not used the haldol prn. if she needs it this evening would order it as a standing order tomorrow around 4 pm. perhaps what we are seeing is sundowning.
[2025-01-02] MEDS: CELEXA 20 MG PO (20:10)
[2025-01-02 23:30] VITALS: BP 141/69
[2025-01-03] MEDS: SYNTHROID 50 MCG PO (06:08)
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
[2025-01-03] MEDS: HALDOL 1 MG IM ×2 (06:42→17:24)
--- NOTE | 2025-01-03 07:42 | W.PN.HOSP.TC ---
Addendum entered and electronically signed by Rosita Leary MD 01/03/25 19:43:
I saw and evaluated the patient independently. I reviewed the resident�s note and agree with findings and plan as documented by Dr. Hernandez.
GENERAL: well developed, well nourished, female in no apparent distress
HEENT: NC/AT--no O2 requirements
HEART: regular rate and rhythm, +S1, +S2
LUNGS : clear to auscultation bilaterally
ABDOM: soft, nontender, nondistended, + bowel sounds
EXT: no cyanosis, clubbing, or edema
NEUROLOGIC: apparent dementia
Acute change in mental status with agitation--w/u neg for medical causes--likely progressive dementia with new behavioral changes-confused--prn haldol--has been agitated and not re-directable (with 3 code purples)--likely should go to [facility] for
medication adjustments--celexa has been decreased and standing PO haldol added
Hypothyroidism--TSH normal. Continue current T4 replacement.
DVT Proph-- SCDs
Code Status--Full
POA / court-appointed guardian Kassandra Tiwari ([phone])--Dr. Hernandez updated 01/02/25, I updated 01/03/25
Original Note:
Today's Communication/Plan
-
Patient had a breakthrough episode of agitation requiring administration of Haldol. Psych continues to follow her and will meet with her tomorrow to determine if any medication adjustments are indicated. Patient's [facility].
Assessment / Plan
Assessment / Plan
-Acute change in mental status with agitation: Monitoring
Patient suffers from chronic Dementia
Remains confused
No current evidence of other acute medical issue at this time. No obvious metabolic disturbances nor any suggestions of active infection
CT head unremarkable.
Labs unremarkable.
No evidence of pneumonia on CXR or infection on UA.
Psychiatry recommended avoiding sedating medications. Haldol for agitation.
Still awaiting MRI
Unfortunately, this reflects a progression of underlying dementia with new behavioral disturbance
Patient had a breakthrough episode of agitation requiring administration of Haldol. Psych continues to follow her and will meet with her tomorrow to determine if any medication adjustments are indicated.
- Hypothyroidism: Stable
TSH normal. Continue current T4 replacement.
DVT Prophylaxis: SCDs
Code Status: Full
POA / court-appointed guardian Kassandra Tiwari ([phone]).
Anticipated Discharge: 24 - 48 hours
Subjective/Interval History
-
Met with the patient at the bedside. She appears apprehensive and distrustful of others. She was successfully able to be redirected and I was able to conduct a physical exam on her today. She was agitated earlier in the day and she was given
Haldol in order to ensure patients safety.
Objective Data
-
Labs:
Patient did not allow lab draws today. Is medically stable and already in discharge planning.
Vital Signs:
Vital Signs
Temp Pulse Resp BP Pulse Ox
98.8 F 68 16 141/69 96
01/02/25 23:30 01/02/25 23:30 01/02/25 23:30 01/02/25 23:30 01/02/25 23:30
I&O
01/02/25 01/03/25 01/04/25
06:59 06:59 06:59
Intake Total 360 / 360 1080 / 1080
Balance 360 / 360 1080 / 1080
Review of Systems
-
History Source: Patient
Constitutional: Reports No Symptoms
EENT: Reports No Symptoms Reported
Respiratory: Reports No Symptoms
Cardiac: Reports No Symptoms
Abdomen/GI: Reports No Symptoms
Breast: Reports No Symptoms
Genitourinary: Reports No Symptoms
Musculoskeletal: Reports No Symptoms
Skin: Reports No Symptoms
Neuro: Reports No Symptoms
Endocrine: Reports No Symptoms
Hematologic / Lymphatic: Reports No Symptoms
Allergy / Immunology: Reports No Symptoms
Physical Exam
-
General: Well Developed, Well Nourished and No Apparent Distress
HEENT: Normocephalic, Atraumatic and Moist Mucous Membranes
Respiratory: Clear to Auscultation
Cardiac: Regular Rhythm and S1/S2
Breast: Deferred by me
GI: Soft, Nontender, Nondistended and Normal Bowel Sounds
Genito-urinary: Deferred by me
Musculoskeletal: No Clubbing, No Cyanosis and No Edema
Skin: Warm and Dry
Neuro: Awake, Alert, Oriented and AO x 3
Psych: Calm and Confused
[2025-01-03] MEDS: LOW STRENGTH ASPIRIN PO (07:45)
[2025-01-03] MEDS: TYLENOL PO (07:45)
--- NOTE | 2025-01-03 12:01 | W.PN.UPDATE ---
Update Note
Progress Note Update
patient seen chart reviewed. discussed w nursing and spoke with dr pean. the patient has had three code purples called . she becomes agitated and aggressive for no apparent reason. she is currently on a one to one because of this. she recieved
a prn of haldol this am and is now sleeping. have ordered haldol o.5 mg bid concentrate as a scheduled order. her agitation does seem to have responded to haldol. have cut back celexa to 10 mg as it could be agitating her. would consider whether
she needs it. when i spoke to her yesterday and the day before she did not seem depressed . her qtc is nl. celexa has a warning re qtc prolongation. with po haldol there should be no issue. psych will follow
--- NOTE | 2025-01-03 13:46 | CM ---
Addendum entered by Yasmine Valero 01/03/25 15:57:
Guardian requested referrals to [facility] psych. Patient guardian requested call from Psych tomorrow and Dr. Perla indicated she would update Dr. Hassan. CM will continue to follow for discharge planning needs.
Addendum entered by Yasmine Valero 01/03/25 15:44:
CM spoke with Guardian and she is requesting referral to geripsych. CM spoke with psych who agreed to have CM work with Guardian to make referrals to geripsych. Psych to follow for review per Psychiatry. CM will call back to Guardian after 4:30pm.
CM will continue to follow for discharge planning needs.
Plan; geripsych vs Psych
Original Note:
[facility] was stated she was unable to accept patient due to behaviors. Patient Guardian is being called by NANCY Duke awaiting updates.
[2025-01-03 15:15] VITALS: BP 128/62
--- NOTE | 2025-01-03 17:25 | PTCARENOTE ---
01/03- Patient is increasingly more agitated. She is able to get up and over her 4 siderails with 1:1 walking with her. Unable to verbally redirect or using de-escalation techniques. Patient made several attempts to walk into others rooms and out
the back exit door on 4W. Jez Robb called. PRN Haldol administered at this time. Continue to monitor.
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
--- NOTE | 2025-01-03 18:12 | PTCARENOTE ---
01/03- A Code Purple has been called again on this patient. This RN found patient on 4E attempting to walk into others rooms again, despite Haldol administration earlier. She is still agitated, confused and physically combative. Security again
attempted to de-escalate patient verbally several times. Security then took patient back to her room. Notified Physician. BL Wrist Soft Restraints applied as per new order. Neurovascular checks and restraint checks are within normal and safe
limits respectively. Continue to monitor.
[2025-01-03 23:25] VITALS: BP 164/73
[2025-01-03] MEDS: CELEXA 10 MG PO (23:57)
[2025-01-03] MEDS: HALDOL CONCENTRATE 0.5 MG PO (23:57)
[2025-01-04] MEDS: TYLENOL 650 MG PO (05:08)
[2025-01-04] MEDS: LOW STRENGTH ASPIRIN 81 MG PO (05:08)
[2025-01-04] MEDS: SYNTHROID 50 MCG PO (05:09)
--- NOTE | 2025-01-04 05:41 | PTCARENOTE ---
Pt was provided meds crushed in applesauce this am. Pt was uncooperative and suspisious. Nurse attempted to reorient pt and explain what the mediation were. Pt denied taking those medication. Nurse was able to administer >90% of medication during
early AM pass. The last 5% was spit out at staff. Pt remains in restraints with 1:1 at bedside. pt denied any needs or pain at this time. Neuro vasc check WDL. Range of motion of B/L UE competed.
[2025-01-04 07:00] VITALS: BP 137/72
--- NOTE | 2025-01-04 07:17 | W.PN.HOSP.TC ---
Addendum entered and electronically signed by Rosita Leary MD 01/04/25 17:16:
I saw and evaluated the patient independently. I reviewed the resident�s note and agree with findings and plan as documented by Dr. Hernandez.
GENERAL: well developed, well nourished, female in no apparent distress
HEENT: NC/AT--no O2 requirements
HEART: regular rate and rhythm, +S1, +S2
LUNGS : clear to auscultation bilaterally
ABDOM: soft, nontender, nondistended, + bowel sounds
EXT: no cyanosis, clubbing, or edema
NEUROLOGIC: apparent dementia
Acute change in mental status with agitation--w/u neg for medical causes--likely progressive dementia with new behavioral changes---prn haldol--has been agitated--likely should go to [facility] for medication adjustments, waiting for bed
acceptance--celexa has been decreased and standing PO haldol added
Hypothyroidism--TSH normal. Continue current T4 replacement.
DVT Proph-- SCDs
Code Status--Full
POA / court-appointed guardian Kassandra Tiwari ([phone])--Dr. Hernandez updated 01/02/25, I updated 01/03/25
Original Note:
Today's Communication/Plan
-
The patient has been started on 0.5 mg of Haldol twice daily for agitation. Patient is medically stable and appropriate for discharge at the present time. Discharge planning ongoing.
Assessment / Plan
Assessment / Plan
-Acute change in mental status with agitation: Monitoring
Patient suffers from chronic Dementia
Remains confused
No current evidence of other acute medical issue at this time. No obvious metabolic disturbances nor any suggestions of active infection
CT head unremarkable.
Labs unremarkable.
No evidence of pneumonia on CXR or infection on UA.
Psychiatry recommended avoiding sedating medications. Haldol for agitation.
Still awaiting MRI
Unfortunately, this reflects a progression of underlying dementia with new behavioral disturbance
Appreciate psychiatry consult. 0.5 mg Haldol p.o. twice daily added for agitation
- Hypothyroidism: Stable
TSH normal. Continue current T4 replacement.
DVT Prophylaxis: SCDs
Code Status: Full
POA / court-appointed guardian Kassandra Tiwari ([phone]).
Anticipated Discharge: Within 24 hours
Subjective/Interval History
-
Met with patient at the bedside. She was sleepy today and did not talk much this morning. Her status remains unchanged since yesterday.
Objective Data
-
Labs:
Laboratory Results
01/03/25 01/03/25 01/04/25
06:00 15:00 07:16
WBC Cancelled Pending
Hgb Cancelled Pending
Hct Cancelled Pending
Plt Count Cancelled Pending
Sodium Cancelled Pending
Potassium Cancelled Pending
Chloride Cancelled Pending
Carbon Dioxide Cancelled Pending
BUN Cancelled Pending
Creatinine Cancelled Pending
Glucose Cancelled Pending
Calcium Cancelled Pending
Total Bilirubin Cancelled Pending
AST Cancelled Pending
ALT Cancelled Pending
Alkaline Phosphatase Cancelled Pending
Vital Signs:
Vital Signs
Temp Pulse Resp BP Pulse Ox
98.7 F 67 17 164/73 97
01/03/25 23:25 01/03/25 23:25 01/03/25 23:25 01/03/25 23:25 01/03/25 23:25
I&O
01/03/25 01/04/25 01/05/25
06:59 06:59 06:59
Intake Total 1080 / 1080 10 / 10
Output Total 0 / 0
Balance 1080 / 1080 10 / 10
Review of Systems
-
Constitutional: Reports No Symptoms
Respiratory: Reports No Symptoms
Cardiac: Reports No Symptoms
Abdomen/GI: Reports No Symptoms
Breast: Reports No Symptoms
Genitourinary: Reports No Symptoms
Musculoskeletal: Reports No Symptoms
Skin: Reports No Symptoms
Neuro: Reports No Symptoms
Endocrine: Reports No Symptoms
Hematologic / Lymphatic: Reports No Symptoms
Allergy / Immunology: Reports No Symptoms
Physical Exam
-
General: Well Developed, Well Nourished and No Apparent Distress
HEENT: Normocephalic, Atraumatic and Moist Mucous Membranes
Respiratory: Clear to Auscultation
Cardiac: Regular Rhythm and S1/S2
Breast: Deferred by me
GI: Soft, Nontender, Nondistended and Normal Bowel Sounds
Rectal: Deferred by Provider
Genito-urinary: Deferred by me
Musculoskeletal: No Clubbing, No Cyanosis and No Edema
Skin: Warm and Dry
Psych: Calm
--- NOTE | 2025-01-04 07:43 | CM ---
Addendum entered by Yasmine Valero 01/04/25 14:45:
[facility] had a bed but are resisting accepting the Guardianship paperwork. Guardian aware and calling facility. CM working with psych to complete 201 and email form to guardianship. CM will continue to follow for discharge planning needs.
Original Note:
Referrals sent to [facility] at request of guardian. Awaiting response.
[2025-01-04 09:06] LABS: Hematocrit 35.7 % (37.0-47.0); Hemoglobin 11.8 g/dL (12.0-16.0); Mean Corp Hgb Conc. 33.1 g/dL (33.0-37.0); Mean Corpuscular Hgb 30.7 pg (27.0-31.0); Mean Platelet Volume 9.8 fL (7.4-10.4); Platelet Count 251 10^3/uL (130-400); Red Blood Cell Count 3.84 10^6/uL (4.20-5.40); Red Cell Dist. Width 13.3 % (11.5-14.5); White Blood Cell Count 8.9 10^3/uL (4.8-10.8)
[2025-01-04] MEDS: HALDOL CONCENTRATE 0.5 MG PO ×2 (09:28→21:00)
[2025-01-04 09:41] LABS: ALT (SGPT) 33 U/L (0-35); AST (SGOT) 45 U/L (14-36); Albumin 4.2 g/dl (3.5-5.0); Alkaline Phosphatase 141 U/L (38-126); Blood Urea Nitrogen 14 mg/dl (7-17); Calcium 9.2 mg/dl (8.4-10.2); Carbon Dioxide 26 mmol/L (22-30); Chloride 102 mmol/L (98-107); Glucose 108 mg/dl (70-99); Magnesium 2.4 mg/dl (1.6-2.3); Potassium 3.7 mmol/L (3.5-5.1); Sodium 137 mmol/L (135-145); Total Bilirubin 1.1 mg/dl (0.2-1.3); Total Protein 6.5 g/dl (6.3-8.2); eGFR > 60.00
--- NOTE | 2025-01-04 15:20 | W.PN.UPDATE ---
Update Note
Progress Note Update
Pt seen, reviewed with case coordinator. Pt resting in bed, in soft wrist restraints, has been sleeping/keeping eyes closed today, has not eaten. Pt uncooperative with treatment/testing. She is taking medication, was placed on Haldol 0.5 mg BID. Pt was
agitated yesterday, trying to enter rooms, cursing at staff, was given Haldol 1 mg x 2. Pt reportedly has a legal guardian, who is willing to sign consent for psych placement.
Imp: Unspecified psychosis
Dementia, with behavior disturbance
Rec: continue Haldol; Celexa tapered to 10 mg HS. Case mgt pursuing [facility]
Will follow
[2025-01-04 23:05] VITALS: BP 134/67
[2025-01-05] MEDS: CELEXA PO (02:44)
[2025-01-05] MEDS: SYNTHROID PO (06:36)
--- NOTE | 2025-01-05 07:25 | W.PN.HOSP.TC ---
Addendum entered and electronically signed by Rosita Leary MD 01/05/25 16:50:
I saw and evaluated the patient independently. I reviewed the resident�s note and agree with findings and plan as documented by Dr. Hernandez.
GENERAL: well developed, well nourished, female in no apparent distress
HEENT: NC/AT--no O2 requirements
HEART: regular rate and rhythm, +S1, +S2
LUNGS : clear to auscultation bilaterally
ABDOM: soft, nontender, nondistended, + bowel sounds
EXT: no cyanosis, clubbing, or edema
NEUROLOGIC: apparent dementia
Acute change in mental status with agitation--w/u neg for medical causes--likely progressive dementia with new behavioral changes---prn haldol--has been agitated--likely should go to [facility] for medication adjustments, waiting for bed
acceptance--celexa has been decreased and standing PO haldol added--accepted to [facility], requesting Covid test--pending
Hypothyroidism--TSH normal. Continue current T4 replacement.
DVT Proph-- SCDs
Code Status--Full
Original Note:
Today's Communication/Plan
-
Case management continues to pursue [facility] placement. The patient remains on Haldol 0.5 mg twice daily with a Haldol 1 mg IM every 4 hours as needed for agitation. Celexa was tapered to 10 mg in the evening.
Assessment / Plan
Assessment / Plan
-Acute change in mental status with agitation: Monitoring
Patient suffers from chronic Dementia
Remains confused
No current evidence of other acute medical issue at this time. No obvious metabolic disturbances nor any suggestions of active infection
CT head unremarkable.
Labs unremarkable.
No evidence of pneumonia on CXR or infection on UA.
Psychiatry recommended avoiding sedating medications. Haldol for agitation.
Still awaiting MRI
Unfortunately, this reflects a progression of underlying dementia with new behavioral disturbance
Appreciate psychiatry consult. Their impression is unspecified psychosis with dementia and behavioral disturbance.
Continue 0.5 mg Haldol p.o. twice daily added for agitation. Celexa tapered to 10 mg at bedtime.
- Hypothyroidism: Stable
TSH normal. Continue current T4 replacement.
DVT Prophylaxis: SCDs
Code Status: Full
POA / court-appointed guardian Kassandra Tiwari ([phone]).
Anticipated Discharge: 24 - 48 hours
Subjective/Interval History
-
Met with patient at the bedside. She is calm and cooperative in discussion. She is able to articulate whether she is comfortable or not. In the evening she has had incidences of walking into other patient rooms, cursing at staff, and being
agitated resulting in as needed Haldol administration to ensure patient's safety and maintain the therapeutic milieu.
Objective Data
-
Labs:
Labs
01/05/25 07:33
01/05/25 07:33
Vital Signs:
Vital Signs
Temp Pulse Resp BP Pulse Ox
98.6 F 73 18 134/67 94
01/04/25 23:05 01/04/25 23:05 01/04/25 23:05 01/04/25 23:05 01/04/25 23:05
I&O
01/04/25 01/05/25 01/06/25
06:59 06:59 06:59
Intake Total 480 / 480
Output Total 0 / 0 1250 / 1250
Balance -770 / -770
Review of Systems
-
History Source: Patient
Constitutional: Reports No Symptoms
EENT: Reports No Symptoms Reported
Respiratory: Reports No Symptoms
Cardiac: Reports No Symptoms
Abdomen/GI: Reports No Symptoms
Breast: Reports No Symptoms
Genitourinary: Reports No Symptoms
Musculoskeletal: Reports No Symptoms
Skin: Reports No Symptoms
Neuro: Reports No Symptoms
Endocrine: Reports No Symptoms
Hematologic / Lymphatic: Reports No Symptoms
Physical Exam
-
General: Well Developed, Well Nourished, No Apparent Distress and Comfortable
HEENT: Normocephalic, Atraumatic and Moist Mucous Membranes
Respiratory: Clear to Auscultation
Cardiac: Regular Rhythm and S1/S2
Breast: Deferred by me
GI: Soft, Nontender, Nondistended and Normal Bowel Sounds
Rectal: Deferred by Provider
Genito-urinary: Deferred by me
Musculoskeletal: No Clubbing and No Cyanosis
Skin: Warm and Dry
Neuro: Awake and Alert
Psych: Calm
[2025-01-05] MEDS: HALDOL CONCENTRATE PO (07:50)
[2025-01-05] MEDS: LOW STRENGTH ASPIRIN PO (07:50)
[2025-01-05] MEDS: TYLENOL PO (07:50)
[2025-01-05 08:16] LABS: Hematocrit 37.2 % (37.0-47.0); Hemoglobin 12.3 g/dL (12.0-16.0); Mean Corp Hgb Conc. 33.1 g/dL (33.0-37.0); Mean Corpuscular Hgb 30.8 pg (27.0-31.0); Mean Platelet Volume 9.7 fL (7.4-10.4); Platelet Count 266 10^3/uL (130-400); Red Cell Dist. Width 13.2 % (11.5-14.5); White Blood Cell Count 10.9 10^3/uL (4.8-10.8)
[2025-01-05 08:35] LABS: ALT (SGPT) 31 U/L (0-35); AST (SGOT) 40 U/L (14-36); Alkaline Phosphatase 144 U/L (38-126); Blood Urea Nitrogen 15 mg/dl (7-17); Calcium 9.3 mg/dl (8.4-10.2); Carbon Dioxide 24 mmol/L (22-30); Chloride 104 mmol/L (98-107); Glucose 99 mg/dl (70-99); Magnesium 2.2 mg/dl (1.6-2.3); Potassium 3.8 mmol/L (3.5-5.1); Sodium 139 mmol/L (135-145); Total Protein 6.6 g/dl (6.3-8.2); eGFR > 60.00
--- NOTE | 2025-01-05 11:21 | W.PN.UPDATE ---
Update Note
Progress Note Update
Pt seen, reviewed with high risk case manager. Pt in bed in soft wrist restraints, has not eaten. Pt uncooperative with treatment/testing. She has been taking medication, although she refused Haldol this morning. Pt suspicious, with dysphoric affect. No EPS
evident. Pt awake, alert, making eye contact, talking, but giving disorganized/irrelevant responses.
Imp: Unspecified psychosis
Dementia, with behavior disturbance
Rec: continue Haldol; Celexa tapered to 10 mg HS. Case mgt pursuing [facility]
Will follow
--- NOTE | 2025-01-05 12:14 | CM ---
Addendum entered by Yasmine Valero 01/05/25 16:38:
[facility] from [facility] has accepted patient. Patient needs to be out of restraints for a few hours and CM will fax covid test results and urinalysis to [facility]. They would like patient to come around 8pm. CM updated nursing and physician.
Please call report to [phone]/fax [phone]. CM completed ambulance transportation forms and tubed them to unit. Patient guardian updated by Skyler and NANCY.
Plan; transfer to [facility]
Addendum entered by Yasmine Valero 01/05/25 14:01:
[facility] has a possible bed per [facility] and he is reviewing the documentation sent. Guardian updated.
Original Note:
[facility] declined to take patient due to primary nature of Dementia. CM spoke with [facility] liaison and he does not have beds until early next week possibly. CM called to [facility] await call back. Referral sent to [facility]
and [facility] this am. CM will continue to follow for discharge planning needs.
Plan; [facility]
[2025-01-05 19:37] LABS: COVID-19 Antigen Negative (Negative)
--- NOTE | 2025-01-05 19:45 | PTCARENOTE ---
Pt transferred to [place] via EMS on stretcher.
--- NOTE | 2025-01-05 20:56 | W.DCSUMMARY ---
Addendum entered and electronically signed by Rosita Leary MD 01/06/25 07:02:
Read, reviewed, and agree. See same day progress note for additional details. Time spent coordinating care, DC planning, review of DC plan of care with resident, transition of care, review of records in EMR, med rec, consults, notes, d/w
consultants, nursing, family, and CM = 31 minutes
Original Note:
Discharge Summary
Discharge Data
Date of Admission: 01/02/25
Date of Discharge: 01/05/25
-
Pending Results: No
Hospital Course
Patient is a 79-year-old female who presented to [facility] from [facility] due to change in mental state. Her normal baseline at [place] is 'pleasantly demented' but unfortunately the day of her presentation she suddenly became
aggressive, delirious, which was an acute change for her. The patient presented screaming out, flailing around, and was unable to communicate. She then would state her name and would remark that she was in '[facility] The patient had
no infectious symptoms, no new medication changes, no hypoxemia, and no evidence of recent trauma or fall. A CT of the head without IV contrast was ordered in the emergency department which was unremarkable. Chest x-ray taken was also
unremarkable. Patient was given Ativan for acute agitation. Telemedicine psychiatry consult recommended the patient be admitted. The patient was subsequently admitted to [facility] for altered mental status.
Throughout her hospital course she was unable to provide an accurate history. She has expressive aphasia and responses to basic questions were incoherent and not relevant to what she was being asked. Celexa 10 mg daily was added. Psychiatry was
under the impression that the patient was likely presenting with symptoms of progressive dementia with new behavioral changes. Labs were unremarkable including TSH being normal. Haldol 0.5 mg twice daily was added as it was effective in reducing
her agitation and aggression. The patient appeared to return to her baseline under this medication adjustment. Patient is no longer agitated nor combative. The patient was accepted to [facility] psych.
The patient has reached maximal benefit from this hospital admission and is appropriate for discharge at the present time. The patient is medically stable and there are no barriers that would impede this patient from being safely discharged. It is
recommended that the patient follow-up with her outpatient psychiatric provider within 1 week following discharge. The patient should follow-up with her primary care provider within 1 week following discharge.
Discharge Plan
-
Patient Disposition: Halfway/SNF
Discharge Diagnosis/Procedures: Acute mental status change, behavioral disturbance, dementia
Condition: Fair
Diet: As tolerated
Activity: As tolerated
Driving Restrictions: No driving
Bathing Restrictions: None
Referrals:
Tho Parker CRNP [Family Provider] - in less than 1 week
Prescriptions:
New
haloperidol lactate 2 mg/mL Concentrate
0.5 mg PO BID Qty: 15 0RF
Continued
citalopram 10 MG tablet
20 mg PO HS
acetaminophen [Tylenol Arthritis Pain] 650 MG tablet extended release
650 mg PO DAILY
meloxicam 7.5 MG tablet
15 mg PO HS
levothyroxine 50 MCG tablet
50 mcg PO DAILY
pantoprazole 40 MG tablet,delayed release (DR/EC)
40 mg PO BID
docusate sodium 100 MG capsule
100 mg PO DAILY
glucosamine-chondroitin [Cosamin DS] 500-400 mg Tablet
1 tab PO DAILY Qty: 0
melatonin 5 MG tablet
5 mg PO HS
pravastatin 40 MG tablet
40 mg PO QPM
Tinnitus 911
1 mg PO BID
cyanocobalamin (vitamin B-12) 1,000 mcg Tablet
1,000 mcg PO DAILY
Discharge Orders:
Discharge Patient (As Directed); Ordered 01/05/25
Ordered By: Deborah Granado
Discharge Date and Time
Discharge Date/Time: 01/05/25 20:03
Print Language: TURKISH
== END 2025-01-05 20:03 | DRG 884 ==
LOC: 4 WEST ACU 07:12
PROVIDERS: Registered Nurse; ADMITTING PHYSICIAN Hospitalist; ATTENDING PHYSICIAN Internal Medicine; EMERGENCY PHYSICIAN Emergency Medicine; FAMILY PHYSICIAN Registered Nurse
DX: F03.918 Unspecified dementia, unspecified severity, with other behavioral disturbance (principal); F05 Delirium due to known physiological condition; Z11.52 Encounter for screening for COVID-19; F02.818 Dementia in other diseases classified elsewhere, unspecified severity, with other behavioral disturbance; E03.9 Hypothyroidism, unspecified; Z78.1 Physical restraint status; Z79.82 Long term (current) use of aspirin; Z79.899 Other long term (current) drug therapy; Z95.0 Presence of cardiac pacemaker
CPT/HCPCS: 70450; 71046; 80048; 80053; 80306; 81003; 83735; 84443; 85025; 85027; 87502; 87811; 92610; 93005; 96374; 97161; 97166; 97530; 99285

== ENCOUNTER 2025-02-14 19:41 | Observation (INO) | payer MEDICARE, OTHER, SELFPAY ==
[2025-02-14] VITALS (7 sets, daily range): BP systolic 95–137; BP diastolic 64–71
[2025-02-14 14:24] LABS: % Basophils 0.5 % (0-2); % Eosinophils 0.2 % (0-6); % Immature Granulocytes 0.5 % (0-0.5); % Lymphocytes 13.8 % (20.5-51.1); % Monocytes 8.7 % (1.7-9.3); % Neutrophils 76.3 % (42.2-75.2); Absolute Basophils 0.1 10^3/uL (0-0.2); Absolute Immature Granulocytes 0.1 10^3/uL (0-0.05); Absolute Monocytes 1.3 10^3/uL (0.1-0.6); Absolute Neutrophils 10.9 10^3/uL (1.4-6.5); Hematocrit 35.3 % (37.0-47.0); Mean Corpuscular Hgb 29.8 pg (27.0-31.0); Mean Corpuscular Volume 87.6 fL (81.0-99.0); Mean Platelet Volume 10.1 fL (7.4-10.4); Nucleated Red Blood Cells % 0 %; Platelet Count 382 10^3/uL (130-400); Red Blood Cell Count 4.03 10^6/uL (4.20-5.40); Red Cell Dist. Width 13.8 % (11.5-14.5); White Blood Cell Count 14.3 10^3/uL (4.8-10.8)
[2025-02-14 14:43] LABS: Blood Urea Nitrogen 14 mg/dl (7-17); Calcium 9.4 mg/dl (8.4-10.2); Carbon Dioxide 25 mmol/L (22-30); Chloride 102 mmol/L (98-107); Glucose 165 mg/dl (70-99); Sodium 139 mmol/L (135-145); eGFR > 60.00
[2025-02-14] MEDS: ATIVAN 0.5 MG IV (16:16)
[2025-02-14] MEDS: NSS 500 IV (16:32)
[2025-02-14 17:37] LABS: Urine Albumin 2+ (Neg - Trace); Urine Bilirubin Negative (Negative); Urine Character Cloudy (Clear); Urine Color Yellow; Urine Glucose Negative (Negative); Urine Ketone 2+ (Negative); Urine Leukocyte 1+ (Negative); Urine Nitrite Negative (Negative); Urine Occult Blood 1+ (Negative); Urine Urobilinogen 3+ (Neg - 1+)
[2025-02-14 18:02] LABS: Urine Bacteria Many (Negative)
[2025-02-14 18:03] LABS: Urine Squamous Cell 0-2 /LPF (Few)
--- NOTE | 2025-02-14 18:04 | ED.GENMED ---
History of Present Illness
General
Chief Complaint: Failure to Thrive
Source: healthcare receptionist, ambulance crew and senior living
Exam Limitations: dementia
Time Seen by Provider: 02/14/25 15:31
Nursing documentation reviewed up to this point in time: agreed with
History of Present Illness
History of Present Illness:
79-year-old female with late stage dementia, hypertension hyperlipidemia presenting to the emergency department after refusing to eat since yesterday. Also has been somewhat anxious. She is unable to give any meaningful history otherwise here
which is her baseline. Patient does take significant amount of medications for anxiety and agitation at baseline as well.
Past History
Past History
ED Past Medical History: GERD, HTN, Hypercholesterolemia, Hypothyroidism and Psychiatric (Dementia)
ED Past Surgical History: Cardiac (pacemaker)
Social History
Tobacco: Non-smoker
Alcohol: None
Living: senior living
Review of Systems
Review of Systems
Allergies reviewed?: Yes
Unable to obtain full review of systems at this time due to: dementia
Other source history: senior living and guardian
Phy Exam
Physical Exam
Physical Exam:
GENERAL: Alert , in no apparent distress
EYE: pupils equal and reactive
NECK: Supple, no significant adenopathy.
ENT: o/p clr, mmm.
CARDIAC: Regular rate and rhythm .
LUNGS: Clear breath sounds bilaterally, no acute respiratory distress, no wheezes/rales/rhonchi
ABDOMEN: Soft, without focal tenderness, no r/g, no cvat
NEUROLOGICAL: Alert not oriented moving all extremities
SKIN: Warm and dry, skin intact.
MUSCULOSKELETAL: No edema, well perfused.
PSYCH: no meaningful conversation
Course
Orders/Labs/Results
Orders:
Orders
02/14/25 Breakfast
Regular
At Your Request: Non-Participating
02/14/25 13:49
Basic Metabolic Panel Urgent
Complete Blood Count/With Diff Urgent
02/14/25 16:04
Lorazepam [Ativan] 0.5 mg IV NOW STA
02/14/25 16:05
0.9% Sodium Chloride 500 ml [Nss] 500 ml IV BOLUS
02/14/25 17:21
Urinalysis Reflex To Culture Urgent
Date Specimen was Collected: 02/14/25
Time Specimen was Collected: 17:20
Urine Microscopic Reflex Cult Urgent
Urine Culture Urgent
MARKO Source: U
Specimen Description:
Date Specimen was Collected: 02/14/25
Time Specimen was Collected: 17:20
02/14/25 18:23
Magnesium Urgent
Comment: ADD ON
Potassium Urgent
02/14/25 18:58
Add On- LAB Urgent
Tests Added?: magnesium
02/14/25 19:12
EKG [Electrocardiogram (*1)] Urgent
Reason for Study: Other
Other Reason for Exam: Hypokalemia
02/14/25 19:29
Admit/Transfer Patient As Directed
Co-Sign Provider:
Level of Care: Observation services
Assign to:: Telemetry
Physician / Group: Jack
Diagnosis: Hypokalemia
Reason for Telemetry: Arrhythmia
Date to Stop Telemetry: 02/17/25
Time to Stop Telemetry: 11:00
Magnesium Sulfate 2 Gram/50 ml [Magnesium Sulfate] 2 gram in 50 ml IV NOW
PRN Pain Medication Management As Directed
May give lesser potent ordered pain med per pt: Yes
preference::
Protocol:: Medication orders for pain may be administered in a
manner that supports deferring to patient preference
when the pt is:
- Requesting an ordered lesser potent pain medication.
Least to most potent pain medications are defined
as: acetaminophen < NSAID < tramadol < opioids
(morphine, oxycodone, hydromorphone).
- Requesting a lesser dose of the same medication IF
ORDERED.
- Requesting a less intrusive route of administration
if both routes are prescribed by the provider (PO <
IV).
02/14/25 19:30
Code Status As Directed
Resuscitation Status: Full Code
02/14/25 19:41
Potassium Chloride [KCl] 40 meq 0.9% Sodium Chloride 250 ml [Nss] 250 ml IV NOW
02/14/25 20:52
Acetaminophen [Tylenol] 650 mg PO Q4HPRN PRN
Lactated Ringers [Lr] 1,000 ml IV 80 mls/hr
Potassium Chloride Powder [Klor-Con] 20 meq PO BID
Quetiapine Fumarate [Seroquel] 25 mg PO Q6HPRN PRN
02/14/25 20:52
Activity As Directed
Activity Level: Ambulate
With Assistance
EKG with chest pain [ECG as needed] As Directed
ECG as needed for:: Chest Pain
I/O [Intake/ Output] As Directed
Frequency: Per unit guidelines
Pneumatic Compression Sleeves As Directed
Type: Knee high
Vital Signs As Directed
Frequency: Per unit guidelines
Oxygen Therapy [O2 Therapy] [RESP] Routine
Titrate/Wean O2 to maintain O2 sat greater than (%): 94
Speech Therapy Eval & Treat Routine
DX Deep Vein Thrombosis Video Routine
02/14/25 22:00
Citalopram [Celexa] 20 mg PO HS
Mirtazapine [Remeron] 15 mg PO HS
02/15/25 05:32
Basic Metabolic Panel IN AM
Complete Blood Count/No Diff IN AM
02/15/25 06:00
Levothyroxine [Synthroid] 50 mcg PO DAILY @ 0600
02/15/25 08:00
Cyanocobalamin [Vitamin B-12] 1,000 mcg PO DAILY
02/15/25 18:00
Pravastatin Sodium [Pravachol] 40 mg PO QPM
02/17/25 11:00
DC Protocol for Telemetry ONCE
Abnormal Lab Results
02/14/25 02/14/25 02/14/25
13:49 17:21 18:23
WBC 14.3 H 10^3/uL
(4.8-10.8)
RBC 4.03 L 10^6/uL
(4.20-5.40)
Hct 35.3 L %
(37.0-47.0)
Abs Immat Gran (auto) 0.1 H 10^3/uL
(0-0.05)
Absolute Neuts (auto) 10.9 H 10^3/uL
(1.4-6.5)
Absolute Monos (auto) 1.3 H 10^3/uL
(0.1-0.6)
Neutrophils % 76.3 H %
(42.2-75.2)
Lymphocytes % 13.8 L %
(20.5-51.1)
Potassium 2.9 L mmol/L
(3.5-5.1)
Glucose 165 H mg/dl
(70-99)
Urine Ketones 2+ A
(Negative)
Ur Occult Blood Reflex 1+ A
(Negative)
Urine Urobilinogen 3+ A
(Neg - 1+)
Leukocyte Esterase Rfl 1+ A
(Negative)
Urine RBC 7-10 A /HPF
(0-2)
Urine Bacteria (Reflex) Many A
(Negative)
Urine Albumin (Reflex) 2+ A
(Neg - Trace)
02/14/25 13:49
02/14/25 18:23
Vital Signs
Initial and Last Documented VS:
Initial Vital Signs
Pulse Resp
111 21
02/14/25 13:38 02/14/25 13:38
Last Documented Vital Signs
Temp Pulse Resp BP Pulse Ox
99.0 F 81 22 143/63 96
02/15/25 11:26 02/15/25 11:26 02/15/25 11:26 02/15/25 11:26 02/15/25 11:26
MDM/Problems Addressed
MDM/Problems Addressed:
79-year-old female presenting to the emergency department after not eating for the last day. Initially mildly tachycardic but heart rate improving without specific treatment. Was given a liter of fluid. Very slight white count of 14.3 but no
evidence of bacterial infection on examination. Urinalysis without emergent findings. No signs of infection. Case discussed with patient's medical power of vascular nurse. Potassium was redrawn and found to be 2.9 considering she is not tolerating by
mouth plan to bring in for IV replacement as risk of worsening is very likely.
*Critical Care Note
Total Time (30-74mins, 75-104mins- exclusive of procedures): Not Applicable
ED Attending Note
-
Portions of this chart may have been created with voice recognition software.� Occasional wrong word or��sound alike� substitutions may have occurred due to the inherent limitations of voice recognition software.
Discharge Plan
Departure
Patient Disposition: Admit
Date of Disposition: 02/14/25
Time of Disposition: 18:34
Admit to: Med/Surg
Admit to doctor: Max
Presentation/result/management discussed w/ accepting MD/DO: Hospitalist
Patient with high blood pressure during this ER visit?: No
Condition: Fair
Covid-19: Not Applicable
Discharge Problem:
Dementia with behavioral disturbance
Interventions
Interventions:
*Risk Screen - Suicide Last Done: 02/15/25 03:21
*General Assessment Last Done: 02/14/25 15:12
*Neglect/Abuse Screening Last Done: 02/14/25 13:44
*ED- Fall Risk Assessment Last Done: 02/14/25 15:12
*ED COVID-19 Vaccine History Last Done: 02/15/25 03:16
[2025-02-14 18:40] LABS: Potassium 2.9 mmol/L (3.5-5.1)
[2025-02-14 19:10] LABS: Magnesium 1.8 mg/dl (1.6-2.3)
--- NOTE | 2025-02-14 19:32 | HPS.HSE ---
Family Physician
-
Family Physician: CUONG Clay
Chief Complaint
-
Fatigue / Not eating
History of Present Illness
Patient is a 79y F with PMH significant for senile dementia who presents to ED for evaluation of poor PO intake / failure to thrive. Patient noted to have hypokalemia on labs. Patient is resting comfortably in the ED. She does not answer
questions consistently nor follow commands. She becomes somewhat agitated when stimulated. No further history available from patient.
Per [facility] record she has had very poor PO intake - with essentially no food, drinks, etc for the past 2 days.
Medical History
Past Medical History
Past Medical History: Reports Other
Additional Past Medical History:
Senile Dementia
Hypothyroidism
GERD
Past Surgical History: Reports Other
Additional Past Surgical History:
Unknown
Social History
Unable to obtain full social history at this time due to: Dementia
Family History
Family History: Unable to Obtain
Allergies / Home Medications
Allergies reflects when Allergies were last updated in [facility].
Home Medications with original date entered in [facility]
Allergy/Medication List:
Allergies
Allergy/AdvReac Type Severity Reaction Status Date / Time
No Known Allergies Allergy Verified 01/01/25 11:42
Home Medications
acetaminophen 650 mg tablet,extended release (Tylenol Arthritis Pain) 650 mg PO DAILY Pain 12/18/21
citalopram 10 mg tablet 20 mg PO HS Mental Health/Anxiety 12/18/21
levothyroxine 50 mcg tablet 50 mcg PO DAILY Thyroid 12/18/21
pantoprazole 40 mg tablet,delayed release 40 mg PO BID Gastrointestinal issue 12/18/21
pravastatin 40 mg tablet 40 mg PO QPM High cholesterol 12/18/21
cyanocobalamin (vitamin B-12) 1,000 mcg tablet 1,000 mcg PO DAILY Supplement 12/31/24
lorazepam 0.5 mg tablet 0.5 mg 02/14/25
mirtazapine 15 mg tablet mg 02/14/25
quetiapine 25 mg tablet 25 mg 02/14/25
Med list from [facility] without dose / frequency for new meds (quetiapine, lorazepam, mirtazapine).
Review of Systems
-
Unable to obtain full review of systems at this time due to: Dementia
Physical Exam
Vital Signs
Vital Signs
Temp Pulse Resp BP Pulse Ox
98.4 F 84 17 95/64 92
02/14/25 13:39 02/14/25 18:00 02/14/25 18:00 02/14/25 18:00 02/14/25 18:00
Physical Exam
General: Other (79y F resting comfortably when undisturbed.)
HEENT: Other (Dry MM. Neck supple. PERRLA.)
Respiratory: Clear; No Wheezes, Rales or Rhonchi
Cardiac: S1/S2 and Irregular Rhythm; No Murmur
GI: Soft, Non Tender, Non Distended and Normal Bowel Sounds
Musculoskeletal: No Edema
Neuro: Other (No evident focal deficits.)
Psych: Other (Poorly responsive. Agitated at times when stimulated.)
Laboratory Results
-
02/14/25 13:49
02/14/25 18:23
Laboratory Results
Total Bilirubin Cancelled 02/14/25 13:49
AST Cancelled 02/14/25 13:49
ALT Cancelled 02/14/25 13:49
Alkaline Phosphatase Cancelled 02/14/25 13:49
Impression/Plan
-
A/P: Patient is a 79y F with PMH significant for dementia who presents to ED this evening for evaluation of failure to thrive.
Hypokalemia
Failure to Thrive
- Observe overnight for further evaluation and treatment.
- No evidence at this time of any acute infectious process.
- IVF support.
- Replace / replete electrolytes as needed.
- Hold PPI BID.
- Speech eval.
- Follow for any improvement in oral intake.
Senile Dementia with Behavioral Disturbance
- Calm at rest with some mild agitation in the ED when stimulated (i.e. when obtaining EKG).
- Continue current medications.
- Need to clarify dose / frequency of newly added meds (quetiapine, lorazepam, mirtazapine).
- Follow for acute agitation / delirium during stay.
Hypothyroidism
- Stable. Recent TSH normal. Continue current T4 replacement.
DVT Prophylaxis: SCDs
Code Status: Full
[2025-02-14] MEDS: KCL 270 MEQ IV (20:37)
[2025-02-14] MEDS: MAGNESIUM SULFATE 50 IV (20:37)
[2025-02-14] MEDS: LR 1000 IV (21:28)
[2025-02-14] MEDS: KLOR-CON PO (21:28)
[2025-02-15] VITALS (12 sets, daily range): BP systolic 124–158; BP diastolic 62–98
[2025-02-15 06:08] LABS: Blood Urea Nitrogen 13 mg/dl (7-17); Calcium 9.2 mg/dl (8.4-10.2); Carbon Dioxide 29 mmol/L (22-30); Chloride 107 mmol/L (98-107); Estimated Creatinine Clearance 64 ml/min; Glucose 137 mg/dl (70-99); Potassium 3.9 mmol/L (3.5-5.1); Sodium 141 mmol/L (135-145); eGFR > 60.00
[2025-02-15 06:14] LABS: Hematocrit 32.7 % (37.0-47.0); Hemoglobin 11.1 g/dL (12.0-16.0); Mean Corp Hgb Conc. 33.9 g/dL (33.0-37.0); Mean Corpuscular Hgb 29.9 pg (27.0-31.0); Mean Corpuscular Volume 88.1 fL (81.0-99.0); Mean Platelet Volume 9.8 fL (7.4-10.4); Platelet Count 295 10^3/uL (130-400); Red Blood Cell Count 3.71 10^6/uL (4.20-5.40); White Blood Cell Count 10.8 10^3/uL (4.8-10.8)
[2025-02-15] MEDS: KLOR-CON PO (08:05)
--- NOTE | 2025-02-15 08:35 | PTOTSP ---
Speech Language Pathology
Pt seen for clinical bedside swallow evaluation. P.O. trials of puree, regular solids, and thin liquids provided. Pt accepting mostly just of liquids with no overt signs of aspiration. Refused puree. Agreed to single bite of regular solid, which
was extremely small. Adequate mastication, although of such a small amount that it was not a thorough assessment of solids. Refused any further solids. Pt mostly refused P.O. intake with [facility] on recent admission in Fe[facility] as well.
Recommend:
(1) Consideration for GOC discussion given FTT with not accepting solid food
(2) Regular solids/thin liquids as tolerated
(3) General aspiration precautions
(4) Meds as able
(5) [facility] to continue to follow
[2025-02-15] MEDS: KLOR-CON 20 MEQ PO (08:38)
[2025-02-15] MEDS: LR 1000 IV (08:40)
--- NOTE | 2025-02-15 14:37 | W.DCSUMMARY ---
Discharge Summary
Discharge Data
Date of Admission: 02/14/25
Date of Discharge: 02/15/25
-
Pending Results: No
Hospital Course
Ms. Yao is a 79-year-old female with a history of senile dementia with behavioral disturbances who presented with failure to thrive. She was mildly hypokalemic and potassium was repleted. She has had very poor recent p.o. intake and increasing
anxiety and agitation. She was otherwise medically stable and requiring no acute interventions. After speaking with her medical power of family law attorney, Kassandra Marrero, decision was made to change her CODE STATUS to DO NOT RESUSCITATE and [facility] to be [facility] on hosp[facility] care.
General: Anxious, confused
HEENT: NormoCephalic, Moist mucous membranes, Atraumatic
Respiratory: Clear and Non Labored Respirations
Cardiac: S1/S2 and Regular Rhythm; No Rub or Gallop
GI: Soft, Non Tender, Non Distended and Normal Bowel Sounds
Musculoskeletal: No Edema, no deformity
: NO Vega
Neuro: Awake, confused, agitated
Psych: Anxious/agitated
Discharge Plan
-
Patient Disposition: Care Home/SNF
Discharge Diagnosis/Procedures: Failure to thrive
Diet: As tolerated
Activity: As tolerated
Other Services: Hospice
Activity Restrictions/Additional Instructions:
Ms. Yao is a 79-year-old female with a history of senile dementia with behavioral disturbances who presented with failure to thrive. She was mildly hypokalemic and potassium was repleted. She has had very poor recent p.o. intake and increasing
anxiety and agitation. She was otherwise medically stable and requiring no acute interventions. After speaking with her medical power of family law attorney, Kassandra Marrero, decision was made to change her CODE STATUS to DO NOT RESUSCITATE and discharge her back
to [facility] to be initiated on hospice care.
Referrals:
Kristie Mayo CRNP [Family Provider] -
Prescriptions:
Continued
levothyroxine 50 MCG tablet
50 mcg PO DAILY
pantoprazole 40 MG tablet,delayed release (DR/EC)
40 mg PO DAILY
pravastatin 40 MG tablet
40 mg PO HS
cyanocobalamin (vitamin B-12) 1,000 mcg Tablet
1,000 mcg PO DAILY
quetiapine 25 mg Tablet
25 mg PO BID
mirtazapine 15 mg Tablet
15 mg PO DAILY
acetaminophen [Tylenol] 325 mg Tablet
650 mg PO Q4HPRN PRN (Reason: mild pain/fever)
citalopram 20 mg Tablet
20 mg PO DAILY
magnesium hydroxide [Milk of Magnesia] 400 mg/5 mL Suspension
2,400 mg PO [id number] PRN (Reason: no bm x3 days)
bisacodyl [Dulcolax (bisacodyl)] 10 mg Suppository
10 mg GA DAILYPRN PRN (Reason: day 5 no bm, mom ineffective)
Culturelle 10 billion cell Capsule
1 cap PO BID
lorazepam 0.5 mg/ml gel
1 ml topical Q4HPRN PRN (Reason: anxiety)
Discharge Orders:
Discharge Patient (As Directed); Ordered 02/15/25
Ordered By: Kenny Stuart
Discharge Date and Time
Print Language: LATVIAN
[2025-02-15] MEDS: SEROQUEL 25 MG PO (14:49)
--- NOTE | 2025-02-15 15:14 | PTCARENOTE ---
Pt drinking fluids, but continues to refuse to eat or take meds. Pt was intermittently agitated, calling out and crying, other times pt was calm and cooperative but confused. During an episode of agitation 25mg PO Seroquel was crushed and put in
orange juice. POA discussed POC w/ Dr Vincent, pt made a DNR per guardian's wishes, CM contacted to facilitate discharge back to facility where they will consult hospice.
--- NOTE | 2025-02-15 15:17 | CM ---
Addendum entered by Elsyia Orellana RN 02/15/25 15:36:
CM updated beside RN and hospitalist with discharge plan.
Original Note:
CM spoke with patient's POA and they are agreeable to return to [facility].
[facility]
Report:[phone]
--- NOTE | 2025-02-15 16:10 | PTCARENOTE ---
Report called, IV removed.
--- NOTE | 2025-02-15 16:20 | PTCARENOTE ---
Report given to ED RENATA Flowers.
== END 2025-02-15 18:30 ==
LOC: ED 19:41
PROVIDERS: Physician Assistant; ADMITTING PHYSICIAN Hospitalist; ATTENDING PHYSICIAN Internal Medicine; EMERGENCY PHYSICIAN Emergency Medicine; FAMILY PHYSICIAN Nurse Practitioner Gerontology
DX: R62.7 Adult failure to thrive (principal); F03.911 Unspecified dementia, unspecified severity, with agitation; F03.94 Unspecified dementia, unspecified severity, with anxiety; F03.918 Unspecified dementia, unspecified severity, with other behavioral disturbance; E78.5 Hyperlipidemia, unspecified; I10 Essential (primary) hypertension; E78.00 Pure hypercholesterolemia, unspecified; E03.9 Hypothyroidism, unspecified; E87.6 Hypokalemia; K21.9 Gastro-esophageal reflux disease without esophagitis; I49.8 Other specified cardiac arrhythmias; R53.83 Other fatigue; R55 Syncope and collapse; R63.0 Anorexia; Z68.26 Body mass index [BMI] 26.0-26.9, adult; Z95.0 Presence of cardiac pacemaker; Z79.890 Hormone replacement therapy; Z66 Do not resuscitate
CPT/HCPCS: 80048; 81003; 81015; 83735; 84132; 85025; 85027; 87070; 87077; 87086; 92610; 93005; G0378